=== PATIENT | male | born 1950 | race Caucasian/White ===

== ENCOUNTER → 2016-06-27 | Outpatient (CLI) | payer BC | LOC: MW.CHIM 15:13 | PROVIDERS: ATTEND Internal Medicine | DX: R07.9 Chest pain, unspecified (principal); R00.1 Bradycardia, unspecified | CPT/HCPCS: 93005 ==

== ENCOUNTER → 2016-07-11 | Outpatient (CLI) | payer BC ==
[~2016-07-11] MED LIST: Gadobenate Dimeglumine 529 MG/ML 20 ML SDV IV ONE
--- NOTE | 2016-07-12 09:46 | MR ---
EXAMINATION: MRI of the brain with and without contrast. TECHNIQUE: Multiplanar multisequence imaging of the brain without and following 15 cc of Multihance contrast. HISTORY: Multiple sclerosis. COMPARISON: 06/23/2015. FINDINGS: There are several periventricular and subcortical white matter FLAIR signal foci identified. Callosa l lesions are also noted. Overall these appear grossly unchanged from the previous MRI. No abnorma l enhancement or diffusion restriction to suggest active demyelination. No abnormal cerebellar or m idbrain signal. There is minimal mucosal thickening within the maxillary sinuses and ethmoid air cells. The orbits a nd globes appear intact. Expected flow voids are present. The cerebellar pontine angles are clear. T he craniocervical junction is normal. IMPRESSION: 1. Stable intracranial white matter FLAIR signal abnormalities consistent with multiple sclerosis. N o evidence of active demyelination.
== END ==
LOC: MW.MRI 14:40
PROVIDERS: ATTEND Psychiatry & Neurology Neurology
DX: G35 Multiple sclerosis (principal); I10 Essential (primary) hypertension; E78.5 Hyperlipidemia, unspecified; E11.9 Type 2 diabetes mellitus without complications; K21.9 Gastro-esophageal reflux disease without esophagitis
CPT/HCPCS: 36415; 70553; 80053; 80061; 83036; 85025; A9577; G0103

== ENCOUNTER 2017-10-12 14:28 | Emergency (ER) | payer BC ==
[2017-10-12] MEDS ORDERED: Bacitracin Oint 1 GM U/D Packet TOP ONE (14:45)
--- NOTE | 2017-10-12 15:01 | EDM.PDOC ---
ED HPI GENERAL MEDICAL PROBLEM - General Chief Complaint: Laceration Stated Complaint: CUT FINGER ON LF HAND Time Seen by Provider: 10/12/17 14:32 Source of Information: Reports: Patient History Limitations: Reports: No Limitations - History of Present Illness INITIAL COMMENTS - FREE TEXT/NARRATIVE: HISTORY AND PHYSICAL: History of present illness: Patient is a 67-year-old male who presents to the emergency room today with complaints of a laceration to the PIP joint on the left second digit. He was using a knife when it slipped resulting in the laceration. Appears to have no tendon involvement. Denies any numbness and tingling to the distal extremity. Review of systems: As per history of present illness and below otherwise all systems reviewed and negative. Past medical history: As per history of present illness and as reviewed below otherwise noncontributory. Surgical history: As per history of present illness and as reviewed below otherwise noncontributory. Social history: No reported history of drug or alcohol abuse. Family history: As per history of present illness and as reviewed below otherwise noncontributory. Physical exam: General: Well-developed and well-nourished 67 year old male. Alert and oriented. Nontoxic appearing and in no acute distress. HEENT: Atraumatic, normocephalic, pupils equal and reactive bilaterally, negative for conjunctival pallor or scleral icterus, mucous membranes moist, throat clear, neck supple, nontender, trachea midline. No drooling or trismus noted. No meningeal signs Lungs: Clear to auscultation, breath sounds equal bilaterally, chest nontender. Heart: S1S2, regular rate and rhythm without overt murmur Abdomen: Soft, nondistended, nontender. Negative for masses or hepatosplenomegaly. Negative for costovertebral tenderness. Pelvis: Stable nontender. Genitourinary: Deferred. Rectal: Deferred. Skin: 4 cm "C" shaped laceration to DIP joint of left second digit. Appears to have no tendon involvement. Otherwise skin is intact, warm, dry. No lesions or rashes noted. Extremities: Moves all extremities per self without difficulty or deficits. Please see skin assessment for laceration note. No tendon involvement. Capillary refill less than 3 seconds. Strong radial pulse. Neurovascular unremarkable. Neuro: Awake, alert, oriented. Cranial nerves II through XII unremarkable. Cerebellum unremarkable. Motor and sensory unremarkable throughout. Exam nonfocal. Notes: Area was cleansed with chlorhexidine. 1% lidocaine was used to anesthetize the area. Usual and customary procedures were used for sutures. 4-9 Nylon, #8 interrupted sutures were placed. Patient tolerated well. Bacitracin nonstick dressing was applied. Supportive care measures were reviewed and discussed. Signs and symptoms that would prompt him to return to the emergency room were reviewed. Patient voices understanding and is agreeable to plan of care. Denies any further questions or concerns at this time. Diagnostics: None Therapeutics: 1% lidocaine, wound care, bacitracin dressing Prescription: None Impression: Laceration, left hand Plan: 1. Rest, ice, elevate the affected extremity. Keep the skin clean and dry. Monitor for signs of infection. Sutures to be removed in 7-10 days. 2. Tylenol and/or ibuprofen as needed for pain management. 3. Follow-up with your primary caregiver in the next 1-2 days. Return to the ED as needed and as discussed. Definitive disposition and diagnosis as appropriate pending reevaluation and review of above. Left 2-Index finger Pain Score (Numeric/FACES): 2 - Related Data Allergies Allergy/AdvReac Type Severity Reaction Status Date / Time Penicillins Allergy Cannot Verified 10/12/17 14:35 Remember Sulfa (Sulfonamide Allergy Cannot Verified 10/12/17 14:35 Antibiotics) Remember Home Meds: Home Meds Acyclovir [Zovirax] 400 mg PO BID 10/12/17 [History] Dorzolamide/Timolol [Cosopt 2%-0.5% Ophth Soln] 1 drop EYEBOTH DAILY 10/12/17 [ History] Metoprolol Tartrate 25 mg PO BEDTIME 10/12/17 [History] Metoprolol Tartrate 50 mg PO DAILY 10/12/17 [History] Ramipril 10 mg PO BID 10/12/17 [History] SUNItinib Malate [Sutent] 12.5 mg PO DAILY 10/12/17 [History] amLODIPine Besylate [Amlodipine Besylate] 10 mg PO DAILY 10/12/17 [History] atorvaSTATin Calcium [Atorvastatin Calcium] 40 mg PO DAILY 10/12/17 [History] metFORMIN HCl [Metformin HCl] 500 mg PO BID 10/12/17 [History] Past Medical History Cardiovascular History: Reports: High Cholesterol, Hypertension, Stents Gastrointestinal History: Reports: Other (See Below) Other Gastrointestinal History: spots on liver Genitourinary History: Reports: Acute Renal Failure Musculoskeletal History: Reports: Fracture Other Musculoskeletal History: neck fx - Infectious Disease History Infectious Disease History: Reports: Chicken Pox, Measles - Past Surgical History GI Surgical History: Reports: Appendectomy, Cholecystectomy, Other (See Below) Other GI Surgeries/Procedures: 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 ED EXAM, SKIN/RASH Exam: See Below (See dictation) ED SKIN PROCEDURES - Laceration/Wound Repair LEft 2nd finger Lac/Wound length In cm: 4 Appearance: Subcutaneous Distal NVT: Neuro & Vascular Intact, No Tendon Injury Local Anesthesia - Lidocaine (Xylocaine): 1% Plain Local Anesthetic Volume: 5cc Skin Prep: Chlorhexidine (Hibiciens), Saline, Sterile Drape Saline Irrigation (cc's): 20 Exploration/Debridement/Repair: Wound Explored, In a Bloodless Field, No Foreign Material Found Suture Size: 4-0 # of Sutures: 8 Suture Type: Nylon Sterile Dressing Applied: Provider Tetanus Status Addressed: Yes Complications: No Course - Vital Signs Last Recorded V/S: Last Vital Signs Temp 97.9 F 10/12/17 14:32 Pulse 96 10/12/17 14:32 Resp 16 10/12/17 14:32 BP 104/71 10/12/17 14:32 Pulse Ox 95 10/12/17 14:32 - Orders/Labs/Meds Orders: Active Orders 24 hr Category Date Time Status Bacitracin [Bacitracin Oint 1 GM] Med 10/12/17 14:45 Once 1 dose TOP ONETIME ONE Lidocaine 1% [Xylocaine-MPF 1%] Med 10/12/17 14:45 Once 10 ml INJECT ONETIME ONE Departure - Departure Time of Disposition: 15:07 Disposition: Home, Self-Care 01 Clinical Impression: Laceration - Discharge Information Instructions: Laceration Care, Adult, [id number] Referrals: Anjum Dang MD [Primary Care Provider] - Additional Instructions: The following information is given to patients seen in the emergency department who are being discharged to home. This information is to outline your options for follow-up care. We provide all patients seen in our emergency department with a follow-up referral. The need for follow-up, as well as the timing and circumstances, are variable depending upon the specifics of your emergency department visit. If you don't have a primary care physician on staff, we will provide you with a referral. We always advise you to contact your personal physician following an emergency department visit to inform them of the circumstance of the visit and for follow-up with them and/or the need for any referrals to a consulting specialist. The emergency department will also refer you to a specialist when appropriate. This referral assures that you have the opportunity for follow-up care with a specialist. All of these measure are taken in an effort to provide you with optimal care, which includes your follow-up. Under all circumstances we always encourage you to contact your private physician who remains a resource for coordinating your care. When calling for follow-up care, please make the office aware that this follow-up is from your recent emergency room visit. If for any reason you are refused follow-up, please contact the [facility] Emergency Department at and asked to speak to the emergency department charge nurse. [facility] [address] [place] [id number] 1. Rest, ice, elevate the affected extremity. Keep the skin clean and dry. Monitor for signs of infection. Sutures to be removed in 7-10 days. 2. Tylenol and/or ibuprofen as needed for pain management. 3. Follow-up with your primary caregiver in the next 1-2 days. Return to the ED as needed and as discussed. - My Orders Last 24 Hours: My Active Orders 10/12/17 14:45 Bacitracin [Bacitracin Oint 1 GM] 1 dose TOP ONETIME ONE Lidocaine 1% [Xylocaine-MPF 1%] 10 ml INJECT ONETIME ONE - Assessment/Plan Last 24 Hours: My Active Orders 10/12/17 14:45 Bacitracin [Bacitracin Oint 1 GM] 1 dose TOP ONETIME ONE Lidocaine 1% [Xylocaine-MPF 1%] 10 ml INJECT ONETIME ONE
== END 2017-10-12 15:22 | disposition home or self-care (01) ==
LOC: MW.ED 14:28
DX: S61.211A Laceration without foreign body of left index finger without damage to nail, initial encounter (principal); E78.00 Pure hypercholesterolemia, unspecified; I10 Essential (primary) hypertension; Z88.0 Allergy status to penicillin; Z88.2 Allergy status to sulfonamides; Z79.899 Other long term (current) drug therapy; Z79.84 Long term (current) use of oral hypoglycemic drugs; Z87.891 Personal history of nicotine dependence; W26.0XXA Contact with knife, initial encounter
CPT/HCPCS: 99282

== ENCOUNTER 2017-10-25 15:12 | Emergency (ER) | payer BC ==
--- NOTE | 2017-10-25 15:31 | EDM.PDOC ---
ED HPI GENERAL MEDICAL PROBLEM - General Chief Complaint: Wound Recheck Stated Complaint: WOUND RECHECK Time Seen by Provider: 10/25/17 15:20 - History of Present Illness INITIAL COMMENTS - FREE TEXT/NARRATIVE: HISTORY AND PHYSICAL: History of present illness: The patient is a 67-year-old male who presents for evaluation of a left hand laceration that he sustained on October 12 and had repair of here and we presented 2 days ago for suture removal. The patient says that he felt fine and he thinks that he may have overdid it with the use of the hand by doing some rigorous pushing and pulling at home and half of the wound has opened up. There is been no drainage from it and there is no significant pain swelling or redness. He is concerned about getting an infection as well as what to do with the wound. The repair note of October 12 was reviewed by me. Review of systems: As per history of present illness and below otherwise all systems reviewed and negative. Past medical history: As per history of present illness and as reviewed below otherwise noncontributory. Surgical history: As per history of present illness and as reviewed below otherwise noncontributory. Social history: No reported history of drug or alcohol abuse. Family history: As per history of present illness and as reviewed below otherwise noncontributory. Physical exam: General: Well-developed well-nourished man who is nontoxic and vital signs are reviewed by me HEENT: Atraumatic, normocephalic, negative for conjunctival pallor or scleral icterus, mucous membranes moist, throat clear, neck supple, nontender, trachea midline. Lungs: Clear to auscultation, breath sounds equal bilaterally, chest nontender. Heart: S1S2, regular 8 and rhythm no overt murmurs Abdomen: Deferred Pelvis: Deferred Genitourinary: Deferred. Rectal: Deferred. Extremities: Atraumatic, negative for cords or calf pain. Neurovascular unremarkable. At the left hand at the second MCP joint area there is a C shaped wound which a proximally one half of which is well-healed and the second half has opened up. The total length of the wound is 4 cm and the open area is 2 cm. The base is clean and dry and there is no surrounding erythema and no drainage as well as no swelling or warmth. The patient is able to range of motion at the index finger. There is no streaking and no dorsal hand swelling defects or deformities. Neuro: Awake, alert, oriented. Cranial nerves II through XII unremarkable. Cerebellum unremarkable. Motor and sensory unremarkable throughout. Exam nonfocal. Diagnostics: Therapeutics: Steri-Strips per nursing to the wound I discussed with the patient that we could apply some Steri-Strips to reapproximate the skin edges but they could not be quite tightly reapproximated and the wound would have to heal by secondary intention. I've advised him on wound care and will give him some Keflex to prevent and prophylax for any infection as he is concerned about that. Impression: Right hand laceration partial dehiscence Definitive disposition and diagnosis as appropriate pending reevaluation and review of above. - Related Data Allergies Allergy/AdvReac Type Severity Reaction Status Date / Time Penicillins Allergy Cannot Verified 10/25/17 15:23 Remember Sulfa (Sulfonamide Allergy Cannot Verified 10/25/17 15:23 Antibiotics) Remember Home Meds: Home Meds Acyclovir [Zovirax] 400 mg PO BID 10/12/17 [History] Dorzolamide/Timolol [Cosopt 2%-0.5% Ophth Soln] 1 drop EYEBOTH DAILY 10/12/17 [ History] Metoprolol Tartrate 25 mg PO BEDTIME 10/12/17 [History] Metoprolol Tartrate 50 mg PO DAILY 10/12/17 [History] Ramipril 10 mg PO BID 10/12/17 [History] SUNItinib Malate [Sutent] 12.5 mg PO DAILY 10/12/17 [History] amLODIPine Besylate [Amlodipine Besylate] 10 mg PO DAILY 10/12/17 [History] atorvaSTATin Calcium [Atorvastatin Calcium] 40 mg PO DAILY 10/12/17 [History] metFORMIN HCl [Metformin HCl] 500 mg PO BID 10/12/17 [History] Past Medical History Cardiovascular History: Reports: High Cholesterol, Hypertension, Stents Gastrointestinal History: Reports: Other (See Below) Other Gastrointestinal History: spots on liver Genitourinary History: Reports: Acute Renal Failure Musculoskeletal History: Reports: Fracture Other Musculoskeletal History: neck fx - Infectious Disease History Infectious Disease History: Reports: Chicken Pox, Measles, Mumps - Past Surgical History GI Surgical History: Reports: Appendectomy, Cholecystectomy, Other (See Below) Other GI Surgeries/Procedures: 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 ED EXAM, GENERAL - Physical Exam Exam: See Below (See dictation) Course - Vital Signs Last Recorded V/S: Last Vital Signs Temp 36.3 C 10/25/17 15:21 Pulse 53 L 10/25/17 15:21 Resp 18 10/25/17 15:21 BP 138/71 10/25/17 15:21 Pulse Ox 94 L 10/25/17 15:21 - Orders/Labs/Meds Orders: Active Orders 24 hr Category Date Time Status Communication Order [RC] STAT Care 10/25/17 15:30 Active Departure - Departure Time of Disposition: 15:35 Disposition: Home, Self-Care 01 Condition: Good Clinical Impression: Wound dehiscence - Discharge Information Referrals: PCP,None [Primary Care Provider] - Forms: ED Department Discharge Additional Instructions: The following information is given to patients seen in the emergency department who are being discharged to home. This information is to outline your options for follow-up care. We provide all patients seen in our emergency department with a follow-up referral. The need for follow-up, as well as the timing and circumstances, are variable depending upon the specifics of your emergency department visit. If you don't have a primary care physician on staff, we will provide you with a referral. We always advise you to contact your personal physician following an emergency department visit to inform them of the circumstance of the visit and for follow-up with them and/or the need for any referrals to a consulting specialist. The emergency department will also refer you to a specialist when appropriate. This referral assures that you have the opportunity for followup care with a specialist. All of these measure are taken in an effort to provide you with optimal care, which includes your followup. Under all circumstances we always encourage you to contact your private physician who remains a resource for coordinating your care. When calling for followup care, please make the office aware that this follow-up is from your recent emergency room visit. If for any reason you are refused follow-up, please contact the [facility] emergency department at and ask to speak to the emergency department charge nurse. [facility] Specialty clinic-Plastic Surgery and Hand Surgery Professional Building [address] [place] [address] [id number] Please leave the Steri-Strips on and in place and they will follow-up naturally. Please consider area with mild soap and water pat dry and you may apply bacitracin or Neosporin as you choose. Take Keflex as prescribed. Please call and schedule a follow-up appointment with our hand specialist in the next few days as you choose and return to ER as needed and as discussed. The wound will slowly you by itself filling in the area naturally over the next 10-14 days. - My Orders Last 24 Hours: My Active Orders 10/25/17 15:30 Communication Order [RC] STAT - Assessment/Plan Last 24 Hours: My Active Orders 10/25/17 15:30 Communication Order [RC] STAT
== END 2017-10-25 15:48 | disposition home or self-care (01) ==
LOC: MW.ED 15:12
DX: T81.30XA Disruption of wound, unspecified, initial encounter (principal); I10 Essential (primary) hypertension; Z79.84 Long term (current) use of oral hypoglycemic drugs; Z79.899 Other long term (current) drug therapy; Z88.2 Allergy status to sulfonamides; Z95.5 Presence of coronary angioplasty implant and graft; Z88.0 Allergy status to penicillin
CPT/HCPCS: 99282

== ENCOUNTER 2017-11-25 13:27 | Inpatient (IN) | payer BC ==
[2017-11-25] MEDS ORDERED: Sodium Chloride 0.9% 2.5 ML Syringe FLUSH PRN (14:23)
[2017-11-25] MEDS ORDERED: Sodium Chloride 0.9% 10 ML Syringe FLUSH PRN (14:23)
[2017-11-25] MEDS ORDERED: Sodium Chloride 0.9% 1,000 ML IV ONE (14:23)
--- NOTE | 2017-11-25 14:33 | EDM.PDOC ---
ED HPI GENERAL MEDICAL PROBLEM - General Chief Complaint: Abdominal Pain Stated Complaint: LOWER ABD PAIN Time Seen by Provider: 11/25/17 14:28 Source of Information: Reports: Patient History Limitations: Reports: No Limitations - History of Present Illness INITIAL COMMENTS - FREE TEXT/NARRATIVE: HISTORY AND PHYSICAL: History of present illness: Patient is a 67-year-old male here with complaint of abdominal pain since 2am today. He reports a constant dull pain with intermittent sharp, severe pain. He states it feels similar to when he had a bowel obstruction a couple of years ago. He states pain is mostly on his right side but wraps around to the left. He states he normally has a bowel movement 10-15 minutes following every meal but yesterday wasn't having regular bowel movements. He states he had a small BM this morning, denies melena or hematochezia. He denies nausea, vomiting, diarrhea, chest pain, shortness of breath. Patient states he did have a small bowel obstruction in 2010 and reports it feels similar to this. Review of systems: As per history of present illness and below otherwise all systems reviewed and negative. Past medical history: As per history of present illness and as reviewed below otherwise noncontributory. Surgical history: As per history of present illness and as reviewed below otherwise noncontributory. Social history: No reported history of drug or alcohol abuse. Family history: As per history of present illness and as reviewed below otherwise noncontributory. Physical exam: General: Patient sitting comfortably in no acute distress and nontoxic appearing HEENT: Atraumatic, normocephalic, pupils reactive, negative for conjunctival pallor or scleral icterus, mucous membranes moist, throat clear, neck supple, nontender, trachea midline. No meningeal signs. Lungs: Clear to auscultation, breath sounds equal bilaterally, chest nontender. Heart: S1S2, regular, negative for clicks, rubs, or overt murmur. Abdomen: Bowel sounds diminished, mildy distended abdomen, pain to palpation diffusely but mostly the right side of the abdomen. Negative for masses or hepatosplenomegaly. Negative for costovertebral tenderness. Pelvis: Stable nontender. Genitourinary: Deferred. Rectal: Deferred. Extremities: Atraumatic, negative for cords or calf pain. Neurovascular unremarkable. Neuro: Awake, alert, oriented. Cranial nerves II through XII unremarkable. Cerebellum unremarkable. Motor and sensory unremarkable throughout. Exam nonfocal. Notes: Diagnostics: CBC, CMP, UA, CT abdomen/pelvis Therapeutics: NG tube Prescriptions: None Impression: Small bowel obstruction Plan: Discussed with Dr. Corrales, patient will be admitted. Discussed with Dr. Bauer as well, he will consult with patient on the floor. Definitive disposition and diagnosis as appropriate pending reevaluation and review of above. Abdomen Pain Score (Numeric/FACES): 3 - Related Data Allergies Allergy/AdvReac Type Severity Reaction Status Date / Time Penicillins Allergy Cannot Verified 11/25/17 14:11 Remember Sulfa (Sulfonamide Allergy Cannot Verified 11/25/17 14:11 Antibiotics) Remember Home Meds: Home Meds Acyclovir [Zovirax] 400 mg PO BID 10/12/17 [History] Dorzolamide/Timolol [Cosopt 2%-0.5% Ophth Soln] 1 drop EYEBOTH DAILY 10/12/17 [ History] Metoprolol Tartrate 25 mg PO BEDTIME 10/12/17 [History] Metoprolol Tartrate 50 mg PO DAILY 10/12/17 [History] Ramipril 10 mg PO BID 10/12/17 [History] SUNItinib Malate [Sutent] 12.5 mg PO DAILY 10/12/17 [History] amLODIPine Besylate [Amlodipine Besylate] 10 mg PO DAILY 10/12/17 [History] atorvaSTATin Calcium [Atorvastatin Calcium] 40 mg PO DAILY 10/12/17 [History] metFORMIN HCl [Metformin HCl] 500 mg PO BID 10/12/17 [History] Past Medical History Cardiovascular History: Reports: High Cholesterol, Hypertension, Stents Gastrointestinal History: Reports: Other (See Below) Other Gastrointestinal History: spots on liver Genitourinary History: Reports: Acute Renal Failure Musculoskeletal History: Reports: Fracture Other Musculoskeletal History: neck fx - Infectious Disease History Infectious Disease History: Reports: Chicken Pox, Measles, Mumps - Past Surgical History GI Surgical History: Reports: Appendectomy, Cholecystectomy, Other (See Below) Other GI Surgeries/Procedures: 60 percent pancreas removal, splenectomy Social & Family History - Family History Family Medical History: Noncontributory - Caffeine Use Caffeine Use: Reports: None ED ROS GENERAL - Review of Systems Review Of Systems: ROS reveals no pertinent complaints other than HPI. ED EXAM, GI/ABD - Physical Exam Exam: See Below (see dictation) Course - Vital Signs Last Recorded V/S: Last Vital Signs Temp 36.4 C 11/25/17 14:08 Pulse 62 11/25/17 14:08 Resp 16 11/25/17 14:08 BP 144/70 H 11/25/17 14:08 Pulse Ox 96 11/25/17 14:08 - Orders/Labs/Meds Orders: Active Orders 24 hr Category Date Time Status EKG Documentation Completion [RC] STAT Care 11/25/17 14:23 Active Abdomen Pelvis w Cont [CT] Stat Exams 11/25/17 15:56 Taken CULTURE URINE [RM] Stat Lab 11/25/17 17:05 Received Sodium Chloride 0.9% [Saline Flush] Med 11/25/17 14:23 Active 10 ml FLUSH ASDIRECTED PRN Sodium Chloride 0.9% [Saline Flush] Med 11/25/17 14:23 Active 2.5 ml FLUSH ASDIRECTED PRN Saline Lock Insert [OM.PC] Stat Oth 11/25/17 14:22 Ordered Medication Orders Sodium Chloride (Saline Flush) 10 ml FLUSH ASDIRECTED PRN PRN Reason: Keep Vein Open Sodium Chloride (Saline Flush) 2.5 ml FLUSH ASDIRECTED PRN PRN Reason: Keep Vein Open Labs: Laboratory Tests 11/25/17 11/25/17 11/25/17 Range/Units 14:49 14:49 17:05 WBC 9.49 (4.0-11.0) K/uL RBC 3.83 L (4.50-5.90) M/uL Hgb 13.5 (13.0-17.0) g/dL Hct 40.4 (38.0-50.0) % MCV 105.5 H (80.0-98.0) fL MCH 35.2 H (27.0-32.0) pg MCHC 33.4 (31.0-37.0) g/dL RDW Std Deviation 61.6 (28.0-62.0) fl RDW Coeff of Reva 16 H (11.0-15.0) % Plt Count 251 (150-400) K/uL MPV 10.90 (7.40-12.00) fL Neut % (Auto) 77.8 (48.0-80.0) % Lymph % (Auto) 14.1 L (16.0-40.0) % [place] % (Auto) 7.4 (0.0-15.0) % Eos % (Auto) 0.6 (0.0-7.0) % Baso % (Auto) 0.1 (0.0-1.5) % Neut # (Auto) 7.4 H (1.4-5.7) K/uL Lymph # (Auto) 1.3 (0.6-2.4) K/uL [place] # (Auto) 0.7 (0.0-0.8) K/uL Eos # (Auto) 0.1 (0.0-0.7) K/uL Baso # (Auto) 0.0 (0.0-0.1) K/uL Nucleated RBC % 0.0 /100WBC Nucleated RBCs # 0 K/uL Sodium 137 (136-148) mmol/L Potassium 4.1 (3.5-5.1) mmol/L Chloride 103 (98-107) mmol/L Carbon Dioxide 28.5 (21.0-32.0) mmol/L BUN 21 H (7.0-18.0) mg/dL Creatinine 1.2 (0.8-1.3) mg/dL Est Cr Clr Drug Dosing 58.58 mL/min Estimated GFR (MDRD) > 60.0 ml/min Glucose 107 H (74-106) mg/dL Calcium 9.8 (8.5-10.1) mg/dL Total Bilirubin 1.2 H (0.2-1.0) mg/dL AST 18 (15-37) IU/L ALT 27 (14-63) IU/L Alkaline Phosphatase 79 (46-116) U/L Troponin I < 0.050 (0.000-0.056) ng/mL Total Protein 7.0 (6.4-8.2) g/dL Albumin 3.7 (3.4-5.0) g/dL Globulin 3.3 (2.0-3.5) g/dL Albumin/Globulin Ratio 1.1 L (1.3-2.8) Lipase 83 (73-393) U/L Urine Color YELLOW Urine Appearance CLEAR Urine pH 7.5 (5.0-8.0) Ur Specific [place] 1.015 (1.001-1.035) Urine Protein NEGATIVE (NEGATIVE) mg/dL Urine Glucose (UA) NEGATIVE (NEGATIVE) mg/dL Urine Ketones NEGATIVE (NEGATIVE) mg/dL Urine Occult Blood NEGATIVE (NEGATIVE) Urine Nitrite NEGATIVE (NEGATIVE) Urine Bilirubin NEGATIVE (NEGATIVE) Urine Urobilinogen 1.0 (<2.0) EU/dL Ur Leukocyte Esterase NEGATIVE (NEGATIVE) Urine RBC 0-1 (0-2/HPF) Urine WBC 0-1 (0-5/HPF) Ur Epithelial Cells RARE (NONE-FEW) Amorphous Sediment LIGHT (NEGATIVE) Urine Bacteria FEW (NEGATIVE) Urine Mucus LIGHT (NONE-MOD) Meds: Medications Generic Name Dose Route Start Last Admin Trade Name Freq PRN Reason Stop Dose Admin Sodium Chloride 10 ml 11/25/17 14:23 Saline Flush FLUSH ASDIRECTED PRN Keep Vein Open Sodium Chloride 2.5 ml 11/25/17 14:23 Saline Flush FLUSH ASDIRECTED PRN Keep Vein Open Discontinued Medications Generic Name Dose Route Start Last Admin Trade Name Freq PRN Reason Stop Dose Admin Sodium Chloride 1,000 mls @ 999 mls/hr 11/25/17 14:23 11/25/17 14:43 Normal Saline IV 11/25/17 15:23 Not Given STAT ONE Iopamidol 100 ml 11/25/17 16:43 11/25/17 16:43 Isovue Multipack-370 (76%) IVPUSH 11/25/17 16:44 100 ml ONETIME ONE Administration Departure - Departure Time of Disposition: 17:49 Disposition: Admitted As Inpatient 67 Condition: Good Clinical Impression: Small bowel obstruction - Discharge Information Referrals: Anjum Dang MD [Primary Care Provider] - Forms: ED Department Discharge - My Orders Last 24 Hours: My Active Orders 11/25/17 14:22 Saline Lock Insert [OM.PC] Stat 11/25/17 14:23 EKG Documentation Completion [RC] STAT Sodium Chloride 0.9% [Saline Flush] 10 ml FLUSH ASDIRECTED PRN Sodium Chloride 0.9% [Saline Flush] 2.5 ml FLUSH ASDIRECTED PRN 11/25/17 15:56 Abdomen Pelvis w Cont [CT] Stat 11/25/17 17:05 CULTURE URINE [RM] Stat - Assessment/Plan Last 24 Hours: My Active Orders 11/25/17 14:22 Saline Lock Insert [OM.PC] Stat 11/25/17 14:23 EKG Documentation Completion [RC] STAT Sodium Chloride 0.9% [Saline Flush] 10 ml FLUSH ASDIRECTED PRN Sodium Chloride 0.9% [Saline Flush] 2.5 ml FLUSH ASDIRECTED PRN 11/25/17 15:56 Abdomen Pelvis w Cont [CT] Stat 11/25/17 17:05 CULTURE URINE [RM] Stat
[2017-11-25 15:23] LABS: CHLORIDE,CL 103 mmol/L (98-107); SODIUM,NA 137 mmol/L (136-148)
[2017-11-25] MEDS ORDERED: Iopamidol 755 MG/ML 200 ML Multipack Bottle IVPUSH ONE (16:43)
[2017-11-25] MEDS ORDERED: Morphine 10 MG/ML Syringe IVPUSH PRN (18:02)
[2017-11-25] MEDS ORDERED: Ketorolac 30 MG/ML SDV IV PRN (18:02)
[2017-11-25] MEDS ORDERED: Enalaprilat 1.25 MG/ML SDV IVPUSH PRN (18:09)
[2017-11-25] MEDS ORDERED: Enoxaparin 40 MG/0.4 ML Syringe SUBCUT SCH (18:15)
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
[2017-11-25] MEDS: Insulin Aspart 100 Units/ML 3 ML Pen SUBCUT SCH (22:17)
[2017-11-25] MEDS: Ondansetron 4 MG/2 ML SDV IVPUSH SCH (22:18)
[2017-11-26] MEDS: Ondansetron 4 MG/2 ML SDV IVPUSH SCH ×3 (00:45→13:19)
[2017-11-26] MEDS: Sodium Chloride 0.9% 1,000 ML IV SCH ×2 (00:46→09:25)
[2017-11-26] MEDS: Insulin Aspart 100 Units/ML 3 ML Pen SUBCUT SCH (06:38)
[2017-11-26] MEDS ORDERED: Morphine 2 MG/ML Syringe IVPUSH PRN (08:31)
[2017-11-26] MEDS ORDERED: Dorzolamide/Timolol 2%-0.5% Ophth Soln 10 ML Bottle EYEBOTH SCH (09:00)
--- NOTE | 2017-11-26 10:23 | PCM.CONSN ---
- General Info Date of Service: 11/26/17 Admission Dx/Problem (Free Text): Small bowel obstruction Subjective Update: Patient is feeling much better. No nausea or vomiting. Rates his abdominal pain less than 1. He is passing gas and has had diarrheal stools since admission. Functional Status: Reports: Pain Controlled, Ambulating, Urinating. Denies: New Symptoms - Review of Systems General: Denies: Fever, Weakness, Fatigue HEENT: Reports: No Symptoms Pulmonary: Denies: Shortness of Breath, Cough Cardiovascular: Reports: No Symptoms Gastrointestinal: Reports: Diarrhea, Flatus. Denies: Abdominal Pain, Constipation, Nausea, Vomiting Genitourinary: Reports: No Symptoms Musculoskeletal: Reports: No Symptoms Skin: Reports: No Symptoms Neurological: Reports: No Symptoms Psychiatric: Reports: No Symptoms - Patient Data Vitals - Most Recent: Last Vital Signs Temp 98.6 F 11/26/17 04:55 Pulse 61 11/26/17 04:55 Resp 16 11/26/17 04:55 BP 130/79 11/26/17 04:55 Pulse Ox 92 L 11/26/17 04:55 Weight - Most Recent: 176 lb 4 oz I&O - Last 24 Hours: Intake & Output 11/25/17 11/26/17 11/26/17 19:59 03:59 11:59 Intake Total 393 Output Total 480 Balance -87 Imaging Impressions - Last 24 Hours: Flat and upright abdomen show air has advanced into the transverse colon. There are no significantly dilated loops of small bowel. Lab Results Last 24 Hours: Laboratory Results - last 24 hr 11/25/17 11/25/17 11/25/17 Range/Units 14:49 14:49 17:05 WBC 9.49 (4.0-11.0) K/uL RBC 3.83 L (4.50-5.90) M/uL Hgb 13.5 (13.0-17.0) g/dL Hct 40.4 (38.0-50.0) % MCV 105.5 H (80.0-98.0) fL MCH 35.2 H (27.0-32.0) pg MCHC 33.4 (31.0-37.0) g/dL RDW Std Deviation 61.6 (28.0-62.0) fl RDW Coeff of Reva 16 H (11.0-15.0) % Plt Count 251 (150-400) K/uL MPV 10.90 (7.40-12.00) fL Neut % (Auto) 77.8 (48.0-80.0) % Lymph % (Auto) 14.1 L (16.0-40.0) % [place] % (Auto) 7.4 (0.0-15.0) % Eos % (Auto) 0.6 (0.0-7.0) % Baso % (Auto) 0.1 (0.0-1.5) % Neut # (Auto) 7.4 H (1.4-5.7) K/uL Lymph # (Auto) 1.3 (0.6-2.4) K/uL [place] # (Auto) 0.7 (0.0-0.8) K/uL Eos # (Auto) 0.1 (0.0-0.7) K/uL Baso # (Auto) 0.0 (0.0-0.1) K/uL Nucleated RBC % 0.0 /100WBC Nucleated RBCs # 0 K/uL Sodium 137 (136-148) mmol/L Potassium 4.1 (3.5-5.1) mmol/L Chloride 103 (98-107) mmol/L Carbon Dioxide 28.5 (21.0-32.0) mmol/L BUN 21 H (7.0-18.0) mg/dL Creatinine 1.2 (0.8-1.3) mg/dL Est Cr Clr Drug Dosing 58.58 mL/min Estimated GFR (MDRD) > 60.0 ml/min Glucose 107 H (74-106) mg/dL POC Glucose (60-110) mg/dL Calcium 9.8 (8.5-10.1) mg/dL Total Bilirubin 1.2 H (0.2-1.0) mg/dL AST 18 (15-37) IU/L ALT 27 (14-63) IU/L Alkaline Phosphatase 79 (46-116) U/L Troponin I < 0.050 (0.000-0.056) ng/mL Total Protein 7.0 (6.4-8.2) g/dL Albumin 3.7 (3.4-5.0) g/dL Globulin 3.3 (2.0-3.5) g/dL Albumin/Globulin Ratio 1.1 L (1.3-2.8) Lipase 83 (73-393) U/L Urine Color YELLOW Urine Appearance CLEAR Urine pH 7.5 (5.0-8.0) Ur Specific [place] 1.015 (1.001-1.035) Urine Protein NEGATIVE (NEGATIVE) mg/dL Urine Glucose (UA) NEGATIVE (NEGATIVE) mg/dL Urine Ketones NEGATIVE (NEGATIVE) mg/dL Urine Occult Blood NEGATIVE (NEGATIVE) Urine Nitrite NEGATIVE (NEGATIVE) Urine Bilirubin NEGATIVE (NEGATIVE) Urine Urobilinogen 1.0 (<2.0) EU/dL Ur Leukocyte Esterase NEGATIVE (NEGATIVE) Urine RBC 0-1 (0-2/HPF) Urine WBC 0-1 (0-5/HPF) Ur Epithelial Cells RARE (NONE-FEW) Amorphous Sediment LIGHT (NEGATIVE) Urine Bacteria FEW (NEGATIVE) Urine Mucus LIGHT (NONE-MOD) 11/25/17 11/26/17 11/26/17 Range/Units 21:57 05:44 05:55 WBC 6.94 (4.0-11.0) K/uL RBC 3.25 L (4.50-5.90) M/uL Hgb 11.3 L (13.0-17.0) g/dL Hct 34.0 L (38.0-50.0) % MCV 104.6 H (80.0-98.0) fL MCH 34.8 H (27.0-32.0) pg MCHC 33.2 (31.0-37.0) g/dL RDW Std Deviation 61.5 (28.0-62.0) fl RDW Coeff of Reva 16 H (11.0-15.0) % Plt Count 223 (150-400) K/uL MPV 11.10 (7.40-12.00) fL Neut % (Auto) 61.8 (48.0-80.0) % Lymph % (Auto) 30.1 (16.0-40.0) % [place] % (Auto) 7.1 (0.0-15.0) % Eos % (Auto) 0.9 (0.0-7.0) % Baso % (Auto) 0.1 (0.0-1.5) % Neut # (Auto) 4.3 (1.4-5.7) K/uL Lymph # (Auto) 2.1 (0.6-2.4) K/uL [place] # (Auto) 0.5 (0.0-0.8) K/uL Eos # (Auto) 0.1 (0.0-0.7) K/uL Baso # (Auto) 0.0 (0.0-0.1) K/uL Nucleated RBC % 0.3 /100WBC Nucleated RBCs # 0 K/uL Sodium 141 (136-148) mmol/L Potassium 4.2 (3.5-5.1) mmol/L Chloride 108 H (98-107) mmol/L Carbon Dioxide 28.3 (21.0-32.0) mmol/L BUN 26 H (7.0-18.0) mg/dL Creatinine 1.3 (0.8-1.3) mg/dL Est Cr Clr Drug Dosing 54.08 mL/min Estimated GFR (MDRD) 55.2 ml/min Glucose 113 H (74-106) mg/dL POC Glucose 120 H (60-110) mg/dL Calcium 8.5 (8.5-10.1) mg/dL Total Bilirubin 1.4 H (0.2-1.0) mg/dL AST 16 (15-37) IU/L ALT 20 (14-63) IU/L Alkaline Phosphatase 62 (46-116) U/L Troponin I (0.000-0.056) ng/mL Total Protein 5.6 L (6.4-8.2) g/dL Albumin 2.8 L (3.4-5.0) g/dL Globulin 2.8 (2.0-3.5) g/dL Albumin/Globulin Ratio 1.0 L (1.3-2.8) Lipase (73-393) U/L Urine Color Urine Appearance Urine pH (5.0-8.0) Ur Specific [place] (1.001-1.035) Urine Protein (NEGATIVE) mg/dL Urine Glucose (UA) (NEGATIVE) mg/dL Urine Ketones (NEGATIVE) mg/dL Urine Occult Blood (NEGATIVE) Urine Nitrite (NEGATIVE) Urine Bilirubin (NEGATIVE) Urine Urobilinogen (<2.0) EU/dL Ur Leukocyte Esterase (NEGATIVE) Urine RBC (0-2/HPF) Urine WBC (0-5/HPF) Ur Epithelial Cells (NONE-FEW) Amorphous Sediment (NEGATIVE) Urine Bacteria (NEGATIVE) Urine Mucus (NONE-MOD) 11/26/17 Range/Units 06:15 WBC (4.0-11.0) K/uL RBC (4.50-5.90) M/uL Hgb (13.0-17.0) g/dL Hct (38.0-50.0) % MCV (80.0-98.0) fL MCH (27.0-32.0) pg MCHC (31.0-37.0) g/dL RDW Std Deviation (28.0-62.0) fl RDW Coeff of Reva (11.0-15.0) % Plt Count (150-400) K/uL MPV (7.40-12.00) fL Neut % (Auto) (48.0-80.0) % Lymph % (Auto) (16.0-40.0) % [place] % (Auto) (0.0-15.0) % Eos % (Auto) (0.0-7.0) % Baso % (Auto) (0.0-1.5) % Neut # (Auto) (1.4-5.7) K/uL Lymph # (Auto) (0.6-2.4) K/uL [place] # (Auto) (0.0-0.8) K/uL Eos # (Auto) (0.0-0.7) K/uL Baso # (Auto) (0.0-0.1) K/uL Nucleated RBC % /100WBC Nucleated RBCs # K/uL Sodium (136-148) mmol/L Potassium (3.5-5.1) mmol/L Chloride (98-107) mmol/L Carbon Dioxide (21.0-32.0) mmol/L BUN (7.0-18.0) mg/dL Creatinine (0.8-1.3) mg/dL Est Cr Clr Drug Dosing mL/min Estimated GFR (MDRD) ml/min Glucose (74-106) mg/dL POC Glucose 100 (60-110) mg/dL Calcium (8.5-10.1) mg/dL Total Bilirubin (0.2-1.0) mg/dL AST (15-37) IU/L ALT (14-63) IU/L Alkaline Phosphatase (46-116) U/L Troponin I (0.000-0.056) ng/mL Total Protein (6.4-8.2) g/dL Albumin (3.4-5.0) g/dL Globulin (2.0-3.5) g/dL Albumin/Globulin Ratio (1.3-2.8) Lipase (73-393) U/L Urine Color Urine Appearance Urine pH (5.0-8.0) Ur Specific [place] (1.001-1.035) Urine Protein (NEGATIVE) mg/dL Urine Glucose (UA) (NEGATIVE) mg/dL Urine Ketones (NEGATIVE) mg/dL Urine Occult Blood (NEGATIVE) Urine Nitrite (NEGATIVE) Urine Bilirubin (NEGATIVE) Urine Urobilinogen (<2.0) EU/dL Ur Leukocyte Esterase (NEGATIVE) Urine RBC (0-2/HPF) Urine WBC (0-5/HPF) Ur Epithelial Cells (NONE-FEW) Amorphous Sediment (NEGATIVE) Urine Bacteria (NEGATIVE) Urine Mucus (NONE-MOD) Med Orders - Current: Current Medications Dorzolamide/Timolol (Cosopt 2%-0.5% Ophth Soln) 0 ml EYEBOTH DAILY [facility] Enalaprilat (Vasotec Iv) 1.25 mg IVPUSH Q6H PRN PRN Reason: Hypertension Enoxaparin Sodium (Lovenox) 40 mg SUBCUT Q24H [facility] Last Admin: 11/25/17 22:48 Dose: 40 mg Sodium Chloride (Normal Saline) 1,000 mls @ 125 mls/hr IV ASDIRECTED [facility] Last Admin: 11/26/17 09:25 Dose: 125 mls/hr Insulin Aspart (Novolog) 0 unit SUBCUT ACBREAKFASTANDBED [facility]; Protocol Last Admin: 11/26/17 06:38 Dose: Not Given Ketorolac Tromethamine (Toradol) 30 mg IV Q6H PRN PRN Reason: Pain (moderate 4-6) Last Admin: 11/25/17 22:49 Dose: 30 mg Morphine Sulfate (Morphine) 2 mg IVPUSH Q2H PRN PRN Reason: Pain (severe 7-10) Stop: 11/26/17 18:04 Ondansetron HCl (Zofran) 4 mg IVPUSH Q6H [facility] Last Admin: 11/26/17 06:16 Dose: 4 mg Sodium Chloride (Saline Flush) 10 ml FLUSH ASDIRECTED PRN PRN Reason: Keep Vein Open Sodium Chloride (Saline Flush) 2.5 ml FLUSH ASDIRECTED PRN PRN Reason: Keep Vein Open Discontinued Medications Sodium Chloride (Normal Saline) 1,000 mls @ 999 mls/hr IV STAT ONE Stop: 11/25/17 15:23 Last Admin: 11/25/17 14:43 Dose: Not Given Iopamidol (Isovue Multipack-370 (76%)) 100 ml IVPUSH ONETIME ONE Stop: 11/25/17 16:44 Last Admin: 11/25/17 16:43 Dose: 100 ml Morphine Sulfate (Morphine) 2 mg IVPUSH Q2H PRN PRN Reason: Pain (severe 7-10) Stop: 11/26/17 18:04 - Exam Quality Assessment: No: Supplemental Oxygen, Urine Catheter General: Alert, Oriented, Cooperative, No Acute Distress HEENT: Pupils Equal, Pupils Reactive, EOMI Neck: Supple Lungs: Clear to Auscultation, Normal Respiratory Effort Cardiovascular: Regular Rate, Regular Rhythm GI/Abdominal Exam: Normal Bowel Sounds, Soft, Non-Tender, No Organomegaly, No Distention, No Mass (Male) Exam: No Hernia Back Exam: Normal Inspection, Full Range of Motion Extremities: Normal Inspection, Normal Range of Motion, Non-Tender, No Pedal Edema, Normal Capillary Refill Skin: Warm, Dry, Intact Neurological: No New Focal Deficit Psy/Mental Status: Alert, Normal Affect, Normal Mood Consult PN Assessment/Plan Procedures: Procedures ASSAY OF AMYLASE (08/10/16) ASSAY OF FOLIC ACID SERUM (08/09/16) ASSAY OF FREE THYROXINE (06/30/15) ASSAY OF MAGNESIUM (09/01/17) ASSAY OF NATRIURETIC PEPTIDE (06/28/17) ASSAY OF PROTEIN URINE (09/14/17) ASSAY OF PSA TOTAL (09/01/17) ASSAY THYROID STIM HORMONE (06/30/15) CHEMO ANTI-NEOPL SQ/IM (11/20/14) COMPLETE CBC W/AUTO DIFF WBC (09/01/17) COMPREHEN METABOLIC PANEL (09/01/17) CREATININE CLEARANCE TEST (09/14/17) ELECTROCARDIOGRAM TRACING (06/27/16) EMERGENCY DEPT VISIT (10/25/17) GLYCOSYLATED HEMOGLOBIN TEST (09/01/17) IMMUNOASSAY TUMOR OTHER (11/02/16) LIPID PANEL (09/01/17) METABOLIC PANEL TOTAL CA (03/26/14) MRI BRAIN STEM W/O & W/DYE (07/11/16) OCCULT BLOOD FECES (07/26/16) ROUTINE VENIPUNCTURE (09/14/17) RPR S/N/AX/GEN/TRNK2.6-7.5CM (10/12/17) THER/PROPH/DIAG INJ SC/IM (04/29/15) TISSUE CULTURE BONE MARROW (04/04/16) UR ALBUMIN SEMIQUANTITATIVE (12/10/13) URINALYSIS AUTO W/SCOPE (11/02/16) US EXAM ABDO BACK WALL ZIMMERMAN (09/14/17) US EXAM ABDOM COMPLETE (08/10/16) VITAMIN B-12 (08/09/16) X-RAY EXAM CHEST 2 VIEWS (06/28/17) (1) Primary pancreatic neuroendocrine tumor SNOMED Code(s): 148268681, 387717508 Code(s): D3A.8 - OTHER BENIGN NEUROENDOCRINE TUMORS Priority: High Current Visit: Yes Comment: Multiple hepatic metastases. (2) Small bowel obstruction SNOMED Code(s): 142128495 Code(s): K56.609 - UNSP INTESTNL OBST, UNSP TO PARTIAL VERSUS COMPLETE OBST Priority: High Current Visit: Yes Problem List Initiated/Reviewed/Updated: Yes My Orders Last 24 Hours: My Active Orders 11/26/17 07:30 Abdomen 2V AP Flat Upright [CR] Routine Plan: Small bowel obstruction appears resolved. I think it safe to remove his NG tube and start him on a clear liquid diet. If he continues to improve his diet could be advanced and he could subsequently be discharged.
--- NOTE | 2017-11-26 11:23 | PCM.HP ---
<Robert Hernandez - Last Filed: 11/26/17 11:34> H&P History of Present Illness - General Date of Service: 11/26/17 Admit Problem/Dx: Small bowel obstruction - History of Present Illness Initial Comments - Free Text/Narative: Hudson Ngo is a 67 y/o male with history of neuroendocrine pancreatic cancer who presented to the ER complaining of acute abdominal pain. Imaging showed a small bowel obstruction. Patient denied any nausea or vomiting. States that abdominal pain felt similar to previous small bowel obstruction. Denies any blood in stool. Denies any sick contacts at home. Denies chest pain, dyspnea, dysuria, rashes. Overnight, the patient's abdominal pain improved significantly. Has been passing gas. No vomiting. Good NG tube output of approximately 250 mls since admission. Abdomen Pain Score (Numeric/FACES): 3 - Related Data Allergies/Adverse Reactions: Allergies Allergy/AdvReac Type Severity Reaction Status Date / Time Penicillins Allergy Cannot Verified 11/25/17 14:11 Remember Sulfa (Sulfonamide Allergy Cannot Verified 11/25/17 14:11 Antibiotics) Remember Home Medications: Home Meds Acyclovir [Zovirax] 400 mg PO BID 10/12/17 [History] Dorzolamide/Timolol [Cosopt 2%-0.5% Ophth Soln] 1 drop EYEBOTH DAILY 10/12/17 [ History] Metoprolol Tartrate 25 mg PO BEDTIME 10/12/17 [History] Metoprolol Tartrate 50 mg PO DAILY 10/12/17 [History] Ramipril 10 mg PO BID 10/12/17 [History] SUNItinib Malate [Sutent] 12.5 mg PO DAILY 10/12/17 [History] amLODIPine Besylate [Amlodipine Besylate] 10 mg PO DAILY 10/12/17 [History] atorvaSTATin Calcium [Atorvastatin Calcium] 40 mg PO BEDTIME 10/12/17 [History] metFORMIN HCl [Metformin HCl] 500 mg PO BID 10/12/17 [History] Cholecalciferol (Vitamin D3) [Vitamin D3] 1,000 units PO DAILY 11/25/17 [History ] Magnesium Oxide [Magnesium] 400 mg PO BID 11/25/17 [History] Multivitamin/Iron/Folic Acid [Multi-Day Plus Iron Tablet] 1 tab PO DAILY [History] Patient's Own Medication [Ptom] 1 drop EYELF BEDTIME 11/25/17 [History] Patient's Own Medication [Ptom] 1 drop EYELF BID 11/25/17 [History] Patient's Own Medication [Ptom] 3 tab PO DAILY 11/25/17 [History] Past Medical History HEENT History: Reports: Cataract, Glaucoma, Impaired Vision Other HEENT History: wears glasses Cardiovascular History: Reports: High Cholesterol, Hypertension, Stents Gastrointestinal History: Reports: Other (See Below) Other Gastrointestinal History: spots on liver. 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 Genitourinary History: Reports: Acute Renal Failure Musculoskeletal History: Reports: Back Pain, Chronic, Fracture Other Musculoskeletal History: neck fx Neurological History: Reports: MS Endocrine/Metabolic History: Reports: Diabetes, Type II Oncologic (Cancer) History: Reports: Other (See Below) Other Oncologic History: neuroendocrine cancer Dermatologic History: Reports: None - Infectious Disease History Infectious Disease History: Reports: Chicken Pox, Measles, Mumps - Past Surgical History HEENT Surgical History: Reports: Cataract Surgery Cardiovascular Surgical History: Reports: Carotid Endarterectomy, Coronary Artery Stent GI Surgical History: Reports: Appendectomy, Cholecystectomy, Other (See Below) Other GI Surgeries/Procedures: 60 percent pancreas removal, splenectomy Male Surgical History: Reports: None Endocrine Surgical History: Reports: None Dermatological Surgical History: Reports: None Social & Family History - Family History Family Medical History: Noncontributory - Tobacco Use Smoking Status *Q: Former Smoker Years of Tobacco use: 2 Used Tobacco, but Quit: Yes Month/Year Tobacco Last Used: 20+ years Tobacco Use Comment: Stopped smoking in 1984 Second Hand Smoke Exposure: No - Caffeine Use Caffeine Use: Reports: None Caffeine Use Comment: Drinks caffine free soda - Recreational Drug Use Recreational Drug Use: No H&P Review of Systems - Review of Systems: Review Of Systems: ROS reveals no pertinent complaints other than HPI. Exam - Exam Exam: See Below - Vital Signs Vital Signs: Last Vital Signs Temp 37.0 C 11/26/17 04:55 Pulse 61 11/26/17 04:55 Resp 16 11/26/17 04:55 BP 130/79 11/26/17 04:55 Pulse Ox 92 L 11/26/17 04:55 Weight: 79.946 kg - Exam General: Alert, Oriented HEENT: Conjunctiva Clear, Mucosa Moist & [place], Posterior Pharynx Clear Cardiovascular: Regular Rate, Regular Rhythm GI/Abdominal Exam: Normal Bowel Sounds, Soft, Other (minimally tender. No rebound.). No: Guarding, Rigid Extremities: Normal Inspection, Normal Range of Motion, No Pedal Edema Skin: Warm, Dry Neurological: Cranial Nerves Intact - Patient Data Lab Results Last 24 hrs: Laboratory Results - last 24 hr 11/25/17 11/25/17 11/25/17 Range/Units 14:49 14:49 17:05 WBC 9.49 (4.0-11.0) K/uL RBC 3.83 L (4.50-5.90) M/uL Hgb 13.5 (13.0-17.0) g/dL Hct 40.4 (38.0-50.0) % MCV 105.5 H (80.0-98.0) fL MCH 35.2 H (27.0-32.0) pg MCHC 33.4 (31.0-37.0) g/dL RDW Std Deviation 61.6 (28.0-62.0) fl RDW Coeff of Reva 16 H (11.0-15.0) % Plt Count 251 (150-400) K/uL MPV 10.90 (7.40-12.00) fL Neut % (Auto) 77.8 (48.0-80.0) % Lymph % (Auto) 14.1 L (16.0-40.0) % Nelson % (Auto) 7.4 (0.0-15.0) % Eos % (Auto) 0.6 (0.0-7.0) % Baso % (Auto) 0.1 (0.0-1.5) % Neut # (Auto) 7.4 H (1.4-5.7) K/uL Lymph # (Auto) 1.3 (0.6-2.4) K/uL Nelson # (Auto) 0.7 (0.0-0.8) K/uL Eos # (Auto) 0.1 (0.0-0.7) K/uL Baso # (Auto) 0.0 (0.0-0.1) K/uL Nucleated RBC % 0.0 /100WBC Nucleated RBCs # 0 K/uL Sodium 137 (136-148) mmol/L Potassium 4.1 (3.5-5.1) mmol/L Chloride 103 (98-107) mmol/L Carbon Dioxide 28.5 (21.0-32.0) mmol/L BUN 21 H (7.0-18.0) mg/dL Creatinine 1.2 (0.8-1.3) mg/dL Est Cr Clr Drug Dosing 58.58 mL/min Estimated GFR (MDRD) > 60.0 ml/min Glucose 107 H (74-106) mg/dL POC Glucose (60-110) mg/dL Calcium 9.8 (8.5-10.1) mg/dL Total Bilirubin 1.2 H (0.2-1.0) mg/dL AST 18 (15-37) IU/L ALT 27 (14-63) IU/L Alkaline Phosphatase 79 (46-116) U/L Troponin I < 0.050 (0.000-0.056) ng/mL Total Protein 7.0 (6.4-8.2) g/dL Albumin 3.7 (3.4-5.0) g/dL Globulin 3.3 (2.0-3.5) g/dL Albumin/Globulin Ratio 1.1 L (1.3-2.8) Lipase 83 (73-393) U/L Urine Color YELLOW Urine Appearance CLEAR Urine pH 7.5 (5.0-8.0) Ur Specific [place] 1.015 (1.001-1.035) Urine Protein NEGATIVE (NEGATIVE) mg/dL Urine Glucose (UA) NEGATIVE (NEGATIVE) mg/dL Urine Ketones NEGATIVE (NEGATIVE) mg/dL Urine Occult Blood NEGATIVE (NEGATIVE) Urine Nitrite NEGATIVE (NEGATIVE) Urine Bilirubin NEGATIVE (NEGATIVE) Urine Urobilinogen 1.0 (<2.0) EU/dL Ur Leukocyte Esterase NEGATIVE (NEGATIVE) Urine RBC 0-1 (0-2/HPF) Urine WBC 0-1 (0-5/HPF) Ur Epithelial Cells RARE (NONE-FEW) Amorphous Sediment LIGHT (NEGATIVE) Urine Bacteria FEW (NEGATIVE) Urine Mucus LIGHT (NONE-MOD) 11/25/17 11/26/17 11/26/17 Range/Units 21:57 05:44 05:55 WBC 6.94 (4.0-11.0) K/uL RBC 3.25 L (4.50-5.90) M/uL Hgb 11.3 L (13.0-17.0) g/dL Hct 34.0 L (38.0-50.0) % MCV 104.6 H (80.0-98.0) fL MCH 34.8 H (27.0-32.0) pg MCHC 33.2 (31.0-37.0) g/dL RDW Std Deviation 61.5 (28.0-62.0) fl RDW Coeff of Reva 16 H (11.0-15.0) % Plt Count 223 (150-400) K/uL MPV 11.10 (7.40-12.00) fL Neut % (Auto) 61.8 (48.0-80.0) % Lymph % (Auto) 30.1 (16.0-40.0) % Nelson % (Auto) 7.1 (0.0-15.0) % Eos % (Auto) 0.9 (0.0-7.0) % Baso % (Auto) 0.1 (0.0-1.5) % Neut # (Auto) 4.3 (1.4-5.7) K/uL Lymph # (Auto) 2.1 (0.6-2.4) K/uL Nelson # (Auto) 0.5 (0.0-0.8) K/uL Eos # (Auto) 0.1 (0.0-0.7) K/uL Baso # (Auto) 0.0 (0.0-0.1) K/uL Nucleated RBC % 0.3 /100WBC Nucleated RBCs # 0 K/uL Sodium 141 (136-148) mmol/L Potassium 4.2 (3.5-5.1) mmol/L Chloride 108 H (98-107) mmol/L Carbon Dioxide 28.3 (21.0-32.0) mmol/L BUN 26 H (7.0-18.0) mg/dL Creatinine 1.3 (0.8-1.3) mg/dL Est Cr Clr Drug Dosing 54.08 mL/min Estimated GFR (MDRD) 55.2 ml/min Glucose 113 H (74-106) mg/dL POC Glucose 120 H (60-110) mg/dL Calcium 8.5 (8.5-10.1) mg/dL Total Bilirubin 1.4 H (0.2-1.0) mg/dL AST 16 (15-37) IU/L ALT 20 (14-63) IU/L Alkaline Phosphatase 62 (46-116) U/L Troponin I (0.000-0.056) ng/mL Total Protein 5.6 L (6.4-8.2) g/dL Albumin 2.8 L (3.4-5.0) g/dL Globulin 2.8 (2.0-3.5) g/dL Albumin/Globulin Ratio 1.0 L (1.3-2.8) Lipase (73-393) U/L Urine Color Urine Appearance Urine pH (5.0-8.0) Ur Specific [place] (1.001-1.035) Urine Protein (NEGATIVE) mg/dL Urine Glucose (UA) (NEGATIVE) mg/dL Urine Ketones (NEGATIVE) mg/dL Urine Occult Blood (NEGATIVE) Urine Nitrite (NEGATIVE) Urine Bilirubin (NEGATIVE) Urine Urobilinogen (<2.0) EU/dL Ur Leukocyte Esterase (NEGATIVE) Urine RBC (0-2/HPF) Urine WBC (0-5/HPF) Ur Epithelial Cells (NONE-FEW) Amorphous Sediment (NEGATIVE) Urine Bacteria (NEGATIVE) Urine Mucus (NONE-MOD) 11/26/17 Range/Units 06:15 WBC (4.0-11.0) K/uL RBC (4.50-5.90) M/uL Hgb (13.0-17.0) g/dL Hct (38.0-50.0) % MCV (80.0-98.0) fL MCH (27.0-32.0) pg MCHC (31.0-37.0) g/dL RDW Std Deviation (28.0-62.0) fl RDW Coeff of Reva (11.0-15.0) % Plt Count (150-400) K/uL MPV (7.40-12.00) fL Neut % (Auto) (48.0-80.0) % Lymph % (Auto) (16.0-40.0) % Nelson % (Auto) (0.0-15.0) % Eos % (Auto) (0.0-7.0) % Baso % (Auto) (0.0-1.5) % Neut # (Auto) (1.4-5.7) K/uL Lymph # (Auto) (0.6-2.4) K/uL [place] # (Auto) (0.0-0.8) K/uL Eos # (Auto) (0.0-0.7) K/uL Baso # (Auto) (0.0-0.1) K/uL Nucleated RBC % /100WBC Nucleated RBCs # K/uL Sodium (136-148) mmol/L Potassium (3.5-5.1) mmol/L Chloride (98-107) mmol/L Carbon Dioxide (21.0-32.0) mmol/L BUN (7.0-18.0) mg/dL Creatinine (0.8-1.3) mg/dL Est Cr Clr Drug Dosing mL/min Estimated GFR (MDRD) ml/min Glucose (74-106) mg/dL POC Glucose 100 (60-110) mg/dL Calcium (8.5-10.1) mg/dL Total Bilirubin (0.2-1.0) mg/dL AST (15-37) IU/L ALT (14-63) IU/L Alkaline Phosphatase (46-116) U/L Troponin I (0.000-0.056) ng/mL Total Protein (6.4-8.2) g/dL Albumin (3.4-5.0) g/dL Globulin (2.0-3.5) g/dL Albumin/Globulin Ratio (1.3-2.8) Lipase (73-393) U/L Urine Color Urine Appearance Urine pH (5.0-8.0) Ur Specific [place] (1.001-1.035) Urine Protein (NEGATIVE) mg/dL Urine Glucose (UA) (NEGATIVE) mg/dL Urine Ketones (NEGATIVE) mg/dL Urine Occult Blood (NEGATIVE) Urine Nitrite (NEGATIVE) Urine Bilirubin (NEGATIVE) Urine Urobilinogen (<2.0) EU/dL Ur Leukocyte Esterase (NEGATIVE) Urine RBC (0-2/HPF) Urine WBC (0-5/HPF) Ur Epithelial Cells (NONE-FEW) Amorphous Sediment (NEGATIVE) Urine Bacteria (NEGATIVE) Urine Mucus (NONE-MOD) Result Diagrams: 11/26/17 05:55 11/26/17 05:44 Problem List Initiated/Reviewed/Updated: Yes Orders Last 24hrs: Active Orders 24 hr Category Date Time Status Patient Status [ADT] Routine ADT 11/25/17 18:02 Active Accu Check [Blood Glucose Check, Bedside] [RC] Care 11/25/17 18:07 Active QIDACANDBED EKG Documentation Completion [RC] STAT Care 11/25/17 14:23 Active Notify Provider Consults [RC] ASDIRECTED Care 11/25/17 18:06 Active Oxygen Therapy [RC] PRN Care 11/25/17 18:02 Active Up With Assistance [RC] ASDIRECTED Care 11/25/17 18:02 Active VTE/DVT Education [RC] PER UNIT ROUTINE Care 11/25/17 18:02 Active Consult to Physician [CONS] Routine Cons 11/25/17 18:02 Active Clear Liquid Diet [DIET] Diet 11/26/17 Lunch Active Abdomen 2V AP Flat Upright [CR] Routine Exams 11/26/17 07:30 Taken Abdomen Pelvis w Cont [CT] Stat Exams 11/25/17 15:56 Taken CXR [Chest 1V Frontal] [CR] Stat Exams 11/25/17 19:01 Taken CULTURE URINE [RM] Stat Lab 11/25/17 17:05 Received Dorzolamide/Timolol [Cosopt 2%-0.5% Ophth Soln] Med 11/26/17 09:00 Active 0 ml EYEBOTH DAILY Enalaprilat [Vasotec IV] Med 11/25/17 18:09 Active 1.25 mg IVPUSH Q6H PRN Enoxaparin [Lovenox] Med 11/25/17 18:15 Active 40 mg SUBCUT Q24H Insulin Aspart [NovoLOG] Med 11/25/17 21:00 Active See Dose Instructions SUBCUT ACBREAKFASTANDBED Ketorolac [Toradol] Med 11/25/17 18:02 Active 30 mg IV Q6H PRN Morphine Med 11/26/17 08:31 Active 2 mg IVPUSH Q2H PRN Ondansetron [Zofran] Med 11/25/17 18:15 Active 4 mg IVPUSH Q6H Sodium Chloride 0.9% [Normal Saline] 1,000 ml Med 11/25/17 18:15 Active IV ASDIRECTED Sodium Chloride 0.9% [Saline Flush] Med 11/25/17 14:23 Active 10 ml FLUSH ASDIRECTED PRN Sodium Chloride 0.9% [Saline Flush] Med 11/25/17 14:23 Active 2.5 ml FLUSH ASDIRECTED PRN Nasogastric Orogastric Tube Insertion [OM.PC] Urgent Oth 11/25/17 18:03 Ordered Nasogastric Orogastric Tube Removal [OM.PC] Routine Oth 11/26/17 10:29 Ordered Saline Lock Insert [OM.PC] Stat Ot 11/25/17 14:22 Ordered Resuscitation Status Routine Resus Stat 11/25/17 18:02 Ordered Medication Orders Dorzolamide/Timolol (Cosopt 2%-0.5% Ophth Soln) 0 ml EYEBOTH DAILY [facility] Enalaprilat (Vasotec Iv) 1.25 mg IVPUSH Q6H PRN PRN Reason: Hypertension Enoxaparin Sodium (Lovenox) 40 mg SUBCUT Q24H [facility] Last Admin: 11/25/17 22:48 Dose: 40 mg Sodium Chloride (Normal Saline) 1,000 mls @ 125 mls/hr IV ASDIRECTED [facility] Last Admin: 11/26/17 09:25 Dose: 125 mls/hr Infusion: 11/26/17 08:46 Dose: 125 mls/hr Admin: 11/26/17 00:46 Dose: 125 mls/hr Insulin Aspart (Novolog) 0 unit SUBCUT ACBREAKFASTANDBED [facility]; Protocol Last Admin: 11/26/17 06:38 Dose: Not Given Admin: 11/25/17 22:17 Dose: Not Given Ketorolac Tromethamine (Toradol) 30 mg IV Q6H PRN PRN Reason: Pain (moderate 4-6) Last Admin: 11/25/17 22:49 Dose: 30 mg Morphine Sulfate (Morphine) 2 mg IVPUSH Q2H PRN PRN Reason: Pain (severe 7-10) Stop: 11/26/17 18:04 Ondansetron HCl (Zofran) 4 mg IVPUSH Q6H [facility] Last Admin: 11/26/17 06:16 Dose: 4 mg Admin: 11/26/17 00:45 Dose: 4 mg Admin: 11/25/17 22:18 Dose: Sodium Chloride (Saline Flush) 10 ml FLUSH ASDIRECTED PRN PRN Reason: Keep Vein Open Sodium Chloride (Saline Flush) 2.5 ml FLUSH ASDIRECTED PRN PRN Reason: Keep Vein Open Assessment/Plan Comment:: 1. Small-bowel obstruction. Pain improved significantly. Appreciate Gen Surgery recommendations. DC NG tube and ordered clear liquid diet. Advance as tolerated. 2. Neuroendocrine pancreatic cancer Dispo: possibly today or tomorrow,pending if tolerating diet <Tiburcio Corrales - Last Filed: 11/26/17 16:14> H&P History of Present Illness - General Admit Problem/Dx: Admission Diagnosis/Problem Admission Diagnosis/Problem Small bowel obstruction I seen and examined the patient independently of medical and scientific illustrator. The patient is a 67-year-old gentleman with a complicated abdominal surgical history who had been admitted secondary to small bowel obstruction. Surgeon on-call was consulted. Conservative treatment with NG tube, nothing by mouth and ambulation was recommended. I have reviewed and agree with the medical residents assessment and plan of action. Please see orders. Exam - Vital Signs Vital Signs: Last Vital Signs Temp 36.6 C 11/26/17 12:00 Pulse 52 L 11/26/17 12:00 Resp 16 11/26/17 12:00 BP 139/70 11/26/17 12:00 Pulse Ox 91 L 11/26/17 12:00 - Patient Data Lab Results Last 24 hrs: Laboratory Results - last 24 hr 11/25/17 11/25/17 11/26/17 Range/Units 17:05 21:57 05:44 WBC (4.0-11.0) K/uL RBC (4.50-5.90) M/uL Hgb (13.0-17.0) g/dL Hct (38.0-50.0) % MCV (80.0-98.0) fL MCH (27.0-32.0) pg MCHC (31.0-37.0) g/dL RDW Std Deviation (28.0-62.0) fl RDW Coeff of Reva (11.0-15.0) % Plt Count (150-400) K/uL MPV (7.40-12.00) fL Neut % (Auto) (48.0-80.0) % Lymph % (Auto) (16.0-40.0) % Nelson % (Auto) (0.0-15.0) % Eos % (Auto) (0.0-7.0) % Baso % (Auto) (0.0-1.5) % Neut # (Auto) (1.4-5.7) K/uL Lymph # (Auto) (0.6-2.4) K/uL Nelson # (Auto) (0.0-0.8) K/uL Eos # (Auto) (0.0-0.7) K/uL Baso # (Auto) (0.0-0.1) K/uL Nucleated RBC % /100WBC Nucleated RBCs # K/uL Sodium 141 (136-148) mmol/L Potassium 4.2 (3.5-5.1) mmol/L Chloride 108 H (98-107) mmol/L Carbon Dioxide 28.3 (21.0-32.0) mmol/L BUN 26 H (7.0-18.0) mg/dL Creatinine 1.3 (0.8-1.3) mg/dL Est Cr Clr Drug Dosing 54.08 mL/min Estimated GFR (MDRD) 55.2 ml/min Glucose 113 H (74-106) mg/dL POC Glucose 120 H (60-110) mg/dL Calcium 8.5 (8.5-10.1) mg/dL Total Bilirubin 1.4 H (0.2-1.0) mg/dL AST 16 (15-37) IU/L ALT 20 (14-63) IU/L Alkaline Phosphatase 62 (46-116) U/L Total Protein 5.6 L (6.4-8.2) g/dL Albumin 2.8 L (3.4-5.0) g/dL Globulin 2.8 (2.0-3.5) g/dL Albumin/Globulin Ratio 1.0 L (1.3-2.8) Urine Color YELLOW Urine Appearance CLEAR Urine pH 7.5 (5.0-8.0) Ur Specific [place] 1.015 (1.001-1.035) Urine Protein NEGATIVE (NEGATIVE) mg/dL Urine Glucose (UA) NEGATIVE (NEGATIVE) mg/dL Urine Ketones NEGATIVE (NEGATIVE) mg/dL Urine Occult Blood NEGATIVE (NEGATIVE) Urine Nitrite NEGATIVE (NEGATIVE) Urine Bilirubin NEGATIVE (NEGATIVE) Urine Urobilinogen 1.0 (<2.0) EU/dL Ur Leukocyte Esterase NEGATIVE (NEGATIVE) Urine RBC 0-1 (0-2/HPF) Urine WBC 0-1 (0-5/HPF) Ur Epithelial Cells RARE (NONE-FEW) Amorphous Sediment LIGHT (NEGATIVE) Urine Bacteria FEW (NEGATIVE) Urine Mucus LIGHT (NONE-MOD) 11/26/17 11/26/17 11/26/17 Range/Units 05:55 06:15 12:49 WBC 6.94 (4.0-11.0) K/uL RBC 3.25 L (4.50-5.90) M/uL Hgb 11.3 L (13.0-17.0) g/dL Hct 34.0 L (38.0-50.0) % MCV 104.6 H (80.0-98.0) fL MCH 34.8 H (27.0-32.0) pg MCHC 33.2 (31.0-37.0) g/dL RDW Std Deviation 61.5 (28.0-62.0) fl RDW Coeff of Reva 16 H (11.0-15.0) % Plt Count 223 (150-400) K/uL MPV 11.10 (7.40-12.00) fL Neut % (Auto) 61.8 (48.0-80.0) % Lymph % (Auto) 30.1 (16.0-40.0) % Nelson % (Auto) 7.1 (0.0-15.0) % Eos % (Auto) 0.9 (0.0-7.0) % Baso % (Auto) 0.1 (0.0-1.5) % Neut # (Auto) 4.3 (1.4-5.7) K/uL Lymph # (Auto) 2.1 (0.6-2.4) K/uL [place] # (Auto) 0.5 (0.0-0.8) K/uL Eos # (Auto) 0.1 (0.0-0.7) K/uL Baso # (Auto) 0.0 (0.0-0.1) K/uL Nucleated RBC % 0.3 /100WBC Nucleated RBCs # 0 K/uL Sodium (136-148) mmol/L Potassium (3.5-5.1) mmol/L Chloride (98-107) mmol/L Carbon Dioxide (21.0-32.0) mmol/L BUN (7.0-18.0) mg/dL Creatinine (0.8-1.3) mg/dL Est Cr Clr Drug Dosing mL/min Estimated GFR (MDRD) ml/min Glucose (74-106) mg/dL POC Glucose 100 98 (60-110) mg/dL Calcium (8.5-10.1) mg/dL Total Bilirubin (0.2-1.0) mg/dL AST (15-37) IU/L ALT (14-63) IU/L Alkaline Phosphatase (46-116) U/L Total Protein (6.4-8.2) g/dL Albumin (3.4-5.0) g/dL Globulin (2.0-3.5) g/dL Albumin/Globulin Ratio (1.3-2.8) Urine Color Urine Appearance Urine pH (5.0-8.0) Ur Specific [place] (1.001-1.035) Urine Protein (NEGATIVE) mg/dL Urine Glucose (UA) (NEGATIVE) mg/dL Urine Ketones (NEGATIVE) mg/dL Urine Occult Blood (NEGATIVE) Urine Nitrite (NEGATIVE) Urine Bilirubin (NEGATIVE) Urine Urobilinogen (<2.0) EU/dL Ur Leukocyte Esterase (NEGATIVE) Urine RBC (0-2/HPF) Urine WBC (0-5/HPF) Ur Epithelial Cells (NONE-FEW) Amorphous Sediment (NEGATIVE) Urine Bacteria (NEGATIVE) Urine Mucus (NONE-MOD) Result Diagrams: 11/26/17 05:55 11/26/17 05:44 Orders Last 24hrs: Active Orders 24 hr Category Date Time Status Patient Status [ADT] Routine ADT 11/25/17 18:02 Active Accu Check [Blood Glucose Check, Bedside] [RC] Care 11/25/17 18:07 Active QIDACANDBED Notify Provider Consults [RC] ASDIRECTED Care 11/25/17 18:06 Active Oxygen Therapy [RC] PRN Care 11/25/17 18:02 Active Ready for Discharge [RC] PER UNIT ROUTINE Care 11/26/17 15:29 Active Up With Assistance [RC] ASDIRECTED Care 11/25/17 18:02 Active VTE/DVT Education [RC] PER UNIT ROUTINE Care 11/25/17 18:02 Active Consult to Physician [CONS] Routine Cons 11/25/17 18:02 Active Clear Liquid Diet [DIET] Diet 11/26/17 Lunch Active Abdomen 2V AP Flat Upright [CR] Routine Exams 11/26/17 07:30 Taken Abdomen Pelvis w Cont [CT] Stat Exams 11/25/17 15:56 Taken CXR [Chest 1V Frontal] [CR] Stat Exams 11/25/17 19:01 Taken COMPREHENSIVE METABOLIC PN,CMP [CHEM] AM Lab 11/27/17 05:11 Ordered CULTURE URINE [RM] Stat Lab 11/25/17 17:05 Received Dorzolamide/Timolol [Cosopt 2%-0.5% Ophth Soln] Med 11/26/17 09:00 Active 0 ml EYEBOTH DAILY Enalaprilat [Vasotec IV] Med 11/25/17 18:09 Active 1.25 mg IVPUSH Q6H PRN Enoxaparin [Lovenox] Med 11/25/17 18:15 Active 40 mg SUBCUT Q24H Insulin Aspart [NovoLOG] Med 11/25/17 21:00 Active See Dose Instructions SUBCUT ACBREAKFASTANDBED Ketorolac [Toradol] Med 11/25/17 18:02 Active 30 mg IV Q6H PRN Morphine Med 11/26/17 08:31 Active 2 mg IVPUSH Q2H PRN Ondansetron [Zofran] Med 11/25/17 18:15 Active 4 mg IVPUSH Q6H Sodium Chloride 0.9% [Normal Saline] 1,000 ml Med 11/25/17 18:15 Active IV ASDIRECTED Nasogastric Orogastric Tube Insertion [OM.PC] Urgent Oth 11/25/17 18:03 Ordered Nasogastric Orogastric Tube Removal [OM.PC] Routine Oth 11/26/17 10:29 Ordered Resuscitation Status Routine Resus Stat 11/25/17 18:02 Ordered Medication Orders Dorzolamide/Timolol (Cosopt 2%-0.5% Ophth Soln) 0 ml EYEBOTH DAILY [facility] Last Admin: 11/26/17 13:10 Dose: Enalaprilat (Vasotec Iv) 1.25 mg IVPUSH Q6H PRN PRN Reason: Hypertension Enoxaparin Sodium (Lovenox) 40 mg SUBCUT Q24H [facility] Last Admin: 11/25/17 22:48 Dose: 40 mg Sodium Chloride (Normal Saline) 1,000 mls @ 125 mls/hr IV ASDIRECTED [facility] Last Admin: 11/26/17 09:25 Dose: 125 mls/hr Infusion: 11/26/17 08:46 Dose: 125 mls/hr Admin: 11/26/17 00:46 Dose: 125 mls/hr Insulin Aspart (Novolog) 0 unit SUBCUT ACBREAKFASTANDBED [facility]; Protocol Last Admin: 11/26/17 06:38 Dose: Not Given Admin: 11/25/17 22:17 Dose: Not Given Ketorolac Tromethamine (Toradol) 30 mg IV Q6H PRN PRN Reason: Pain (moderate 4-6) Last Admin: 11/25/17 22:49 Dose: 30 mg Morphine Sulfate (Morphine) 2 mg IVPUSH Q2H PRN PRN Reason: Pain (severe 7-10) Stop: 11/26/17 18:04 Ondansetron HCl (Zofran) 4 mg IVPUSH Q6H [facility] Last Admin: 11/26/17 13:19 Dose: 4 mg Admin: 11/26/17 06:16 Dose: 4 mg Admin: 11/26/17 00:45 Dose: 4 mg Admin: 11/25/17 22:18 Dose: Sodium Chloride (Saline Flush) 10 ml FLUSH ASDIRECTED PRN PRN Reason: Keep Vein Open Sodium Chloride (Saline Flush) 2.5 ml FLUSH ASDIRECTED PRN PRN Reason: Keep Vein Open
--- NOTE | 2017-11-26 16:15 | PCM.DCSUM1 ---
Discharge Summary - Hospital Course Free Text/Narrative:: The patient had been admitted secondary to small bowel obstruction. Diagnosis: Stroke: No - Discharge Data Discharge Date: 11/26/17 Discharge Disposition: Home, Self-Care 01 Condition: Good - Patient Summary/Data Consults: Consultations 11/25/17 18:02 Consult to Physician [CONS] Routine Hospital Course: The patient is a 67-year-old gentleman who presented to the emergency department on November 25, 2017 with a complaint of severe abdominal pain. Patient has a history of multiple bowel obstructions and multiple abdominal surgeries. The patient does have a history of neuroendocrine tumors and partial pancreatectomy. The patient reported that prior to presentation to the emergency department he had not passed gas or had a bowel movement. On-call surgeon was consulted and felt that it was best for the patient if a conservative approach was taken. The patient had an NG tube placed to help decompress his intestine and this had improved his abdominal pain. The patient was also kept nothing by mouth and supported with intravenous fluids and also had pain control. The patient cleared his bowel obstruction relatively quickly and was noted to have a bowel movement, loose stools and passing flatus. On- call surgeon had recommended that the patient have NG tube removed and diet advanced. The patient overall had been doing very well with the NG tube gone and he had his diet advanced accordingly. The patient had been tolerating the diet well. The patient also had resolution of his pain and he had been ambulating without difficulty. It was recommended that the patient continue on all of his home medications as well as any supplements that he is taking. He has been recommended to have diet as tolerated. He is also to have activity as tolerated. The patient has been discharged from acute hospitalization with the recommendations listed above. The patient has been recommended to follow-up with general surgeon and his primary care physician. - Patient Instructions Diet: Regular Diet as Tolerated Activity: As Tolerated Notify Provider of: Fever, Increased Pain, Swelling and Redness, Nausea and/or Vomiting - Discharge Plan *PRESCRIPTION DRUG MONITORING PROGRAM REVIEWED*: Not Applicable *COPY OF PRESCRIPTION DRUG MONITORING REPORT IN PATIENT KANDI: Not Applicable Home Medications: Home Meds Acyclovir [Zovirax] 400 mg PO BID 10/12/17 [History] Dorzolamide/Timolol [Cosopt 2%-0.5% Ophth Soln] 1 drop EYEBOTH DAILY 10/12/17 [ History] Metoprolol Tartrate 25 mg PO BEDTIME 10/12/17 [History] Metoprolol Tartrate 50 mg PO DAILY 10/12/17 [History] Ramipril 10 mg PO BID 10/12/17 [History] SUNItinib Malate [Sutent] 12.5 mg PO DAILY 10/12/17 [History] amLODIPine Besylate [Amlodipine Besylate] 10 mg PO DAILY 10/12/17 [History] atorvaSTATin Calcium [Atorvastatin Calcium] 40 mg PO BEDTIME 10/12/17 [History] metFORMIN HCl [Metformin HCl] 500 mg PO BID 10/12/17 [History] Cholecalciferol (Vitamin D3) [Vitamin D3] 1,000 units PO DAILY 11/25/17 [History ] Magnesium Oxide [Magnesium] 400 mg PO BID 11/25/17 [History] Multivitamin/Iron/Folic Acid [Multi-Day Plus Iron Tablet] 1 tab PO DAILY [History] Patient's Own Medication [Ptom] 1 drop EYELF BEDTIME 11/25/17 [History] Patient's Own Medication [Ptom] 1 drop EYELF BID 11/25/17 [History] Patient's Own Medication [Ptom] 3 tab PO DAILY 11/25/17 [History] Patient Handouts: Small Bowel Obstruction, [id number] Referrals: Frank Bauer MD [Physician] - Anjum Dang MD [Primary Care Provider] - - General Info Admission Dx/Problem (Free Text: Admission Diagnosis/Problem Admission Diagnosis/Problem Small bowel obstruction Functional Status: Reports: Pain Controlled, Tolerating Diet, Ambulating - Review of Systems General: Reports: No Symptoms HEENT: Reports: No Symptoms Pulmonary: Reports: No Symptoms Cardiovascular: Reports: No Symptoms Gastrointestinal: Reports: No Symptoms Genitourinary: Reports: No Symptoms Musculoskeletal: Reports: No Symptoms Skin: Reports: No Symptoms Neurological: Reports: No Symptoms Psychiatric: Reports: No Symptoms - Patient Data Vitals - Most Recent: Last Vital Signs Temp 36.6 C 11/26/17 12:00 Pulse 52 L 11/26/17 12:00 Resp 16 11/26/17 12:00 BP 139/70 11/26/17 12:00 Pulse Ox 91 L 11/26/17 12:00 Weight - Most Recent: 79.946 kg I&O - Last 24 hours: Intake & Output 11/26/17 11/26/17 11/26/17 06:59 14:59 22:59 Intake Total 393 2560 Output Total 480 300 Balance -87 2260 Lab Results - Last 24 hrs: Laboratory Results - last 24 hr 11/25/17 11/25/17 11/26/17 Range/Units 17:05 21:57 05:44 WBC (4.0-11.0) K/uL RBC (4.50-5.90) M/uL Hgb (13.0-17.0) g/dL Hct (38.0-50.0) % MCV (80.0-98.0) fL MCH (27.0-32.0) pg MCHC (31.0-37.0) g/dL RDW Std Deviation (28.0-62.0) fl RDW Coeff of Reva (11.0-15.0) % Plt Count (150-400) K/uL MPV (7.40-12.00) fL Neut % (Auto) (48.0-80.0) % Lymph % (Auto) (16.0-40.0) % Cannon % (Auto) (0.0-15.0) % Eos % (Auto) (0.0-7.0) % Baso % (Auto) (0.0-1.5) % Neut # (Auto) (1.4-5.7) K/uL Lymph # (Auto) (0.6-2.4) K/uL Cannon # (Auto) (0.0-0.8) K/uL Eos # (Auto) (0.0-0.7) K/uL Baso # (Auto) (0.0-0.1) K/uL Nucleated RBC % /100WBC Nucleated RBCs # K/uL Sodium 141 (136-148) mmol/L Potassium 4.2 (3.5-5.1) mmol/L Chloride 108 H (98-107) mmol/L Carbon Dioxide 28.3 (21.0-32.0) mmol/L BUN 26 H (7.0-18.0) mg/dL Creatinine 1.3 (0.8-1.3) mg/dL Est Cr Clr Drug Dosing 54.08 mL/min Estimated GFR (MDRD) 55.2 ml/min Glucose 113 H (74-106) mg/dL POC Glucose 120 H (60-110) mg/dL Calcium 8.5 (8.5-10.1) mg/dL Total Bilirubin 1.4 H (0.2-1.0) mg/dL AST 16 (15-37) IU/L ALT 20 (14-63) IU/L Alkaline Phosphatase 62 (46-116) U/L Total Protein 5.6 L (6.4-8.2) g/dL Albumin 2.8 L (3.4-5.0) g/dL Globulin 2.8 (2.0-3.5) g/dL Albumin/Globulin Ratio 1.0 L (1.3-2.8) Urine Color YELLOW Urine Appearance CLEAR Urine pH 7.5 (5.0-8.0) Ur Specific [place] 1.015 (1.001-1.035) Urine Protein NEGATIVE (NEGATIVE) mg/dL Urine Glucose (UA) NEGATIVE (NEGATIVE) mg/dL Urine Ketones NEGATIVE (NEGATIVE) mg/dL Urine Occult Blood NEGATIVE (NEGATIVE) Urine Nitrite NEGATIVE (NEGATIVE) Urine Bilirubin NEGATIVE (NEGATIVE) Urine Urobilinogen 1.0 (<2.0) EU/dL Ur Leukocyte Esterase NEGATIVE (NEGATIVE) Urine RBC 0-1 (0-2/HPF) Urine WBC 0-1 (0-5/HPF) Ur Epithelial Cells RARE (NONE-FEW) Amorphous Sediment LIGHT (NEGATIVE) Urine Bacteria FEW (NEGATIVE) Urine Mucus LIGHT (NONE-MOD) 11/26/17 11/26/17 11/26/17 Range/Units 05:55 06:15 12:49 WBC 6.94 (4.0-11.0) K/uL RBC 3.25 L (4.50-5.90) M/uL Hgb 11.3 L (13.0-17.0) g/dL Hct 34.0 L (38.0-50.0) % MCV 104.6 H (80.0-98.0) fL MCH 34.8 H (27.0-32.0) pg MCHC 33.2 (31.0-37.0) g/dL RDW Std Deviation 61.5 (28.0-62.0) fl RDW Coeff of Reva 16 H (11.0-15.0) % Plt Count 223 (150-400) K/uL MPV 11.10 (7.40-12.00) fL Neut % (Auto) 61.8 (48.0-80.0) % Lymph % (Auto) 30.1 (16.0-40.0) % Cannon % (Auto) 7.1 (0.0-15.0) % Eos % (Auto) 0.9 (0.0-7.0) % Baso % (Auto) 0.1 (0.0-1.5) % Neut # (Auto) 4.3 (1.4-5.7) K/uL Lymph # (Auto) 2.1 (0.6-2.4) K/uL Cannon # (Auto) 0.5 (0.0-0.8) K/uL Eos # (Auto) 0.1 (0.0-0.7) K/uL Baso # (Auto) 0.0 (0.0-0.1) K/uL Nucleated RBC % 0.3 /100WBC Nucleated RBCs # 0 K/uL Sodium (136-148) mmol/L Potassium (3.5-5.1) mmol/L Chloride (98-107) mmol/L Carbon Dioxide (21.0-32.0) mmol/L BUN (7.0-18.0) mg/dL Creatinine (0.8-1.3) mg/dL Est Cr Clr Drug Dosing mL/min Estimated GFR (MDRD) ml/min Glucose (74-106) mg/dL POC Glucose 100 98 (60-110) mg/dL Calcium (8.5-10.1) mg/dL Total Bilirubin (0.2-1.0) mg/dL AST (15-37) IU/L ALT (14-63) IU/L Alkaline Phosphatase (46-116) U/L Total Protein (6.4-8.2) g/dL Albumin (3.4-5.0) g/dL Globulin (2.0-3.5) g/dL Albumin/Globulin Ratio (1.3-2.8) Urine Color Urine Appearance Urine pH (5.0-8.0) Ur Specific [place] (1.001-1.035) Urine Protein (NEGATIVE) mg/dL Urine Glucose (UA) (NEGATIVE) mg/dL Urine Ketones (NEGATIVE) mg/dL Urine Occult Blood (NEGATIVE) Urine Nitrite (NEGATIVE) Urine Bilirubin (NEGATIVE) Urine Urobilinogen (<2.0) EU/dL Ur Leukocyte Esterase (NEGATIVE) Urine RBC (0-2/HPF) Urine WBC (0-5/HPF) Ur Epithelial Cells (NONE-FEW) Amorphous Sediment (NEGATIVE) Urine Bacteria (NEGATIVE) Urine Mucus (NONE-MOD) Med Orders - Current: Current Medications Dorzolamide/Timolol (Cosopt 2%-0.5% Ophth Soln) 0 ml EYEBOTH DAILY [facility] Last Admin: 11/26/17 13:10 Dose: Not Given Enalaprilat (Vasotec Iv) 1.25 mg IVPUSH Q6H PRN PRN Reason: Hypertension Enoxaparin Sodium (Lovenox) 40 mg SUBCUT Q24H [facility] Last Admin: 11/25/17 22:48 Dose: 40 mg Sodium Chloride (Normal Saline) 1,000 mls @ 125 mls/hr IV ASDIRECTED [facility] Last Admin: 11/26/17 09:25 Dose: 125 mls/hr Insulin Aspart (Novolog) 0 unit SUBCUT ACBREAKFASTANDBED [facility]; Protocol Last Admin: 11/26/17 06:38 Dose: Not Given Ketorolac Tromethamine (Toradol) 30 mg IV Q6H PRN PRN Reason: Pain (moderate 4-6) Last Admin: 11/25/17 22:49 Dose: 30 mg Morphine Sulfate (Morphine) 2 mg IVPUSH Q2H PRN PRN Reason: Pain (severe 7-10) Stop: 11/26/17 18:04 Ondansetron HCl (Zofran) 4 mg IVPUSH Q6H [facility] Last Admin: 11/26/17 13:19 Dose: 4 mg Sodium Chloride (Saline Flush) 10 ml FLUSH ASDIRECTED PRN PRN Reason: Keep Vein Open Sodium Chloride (Saline Flush) 2.5 ml FLUSH ASDIRECTED PRN PRN Reason: Keep Vein Open Discontinued Medications Sodium Chloride (Normal Saline) 1,000 mls @ 999 mls/hr IV STAT ONE Stop: 11/25/17 15:23 Last Admin: 11/25/17 14:43 Dose: Not Given Iopamidol (Isovue Multipack-370 (76%)) 100 ml IVPUSH ONETIME ONE Stop: 11/25/17 16:44 Last Admin: 11/25/17 16:43 Dose: 100 ml Morphine Sulfate (Morphine) 2 mg IVPUSH Q2H PRN PRN Reason: Pain (severe 7-10) Stop: 11/26/17 18:04 - Exam Quality Assessment: Denies: Supplemental Oxygen, Urine Catheter General: Reports: Alert, Oriented, Cooperative, No Acute Distress HEENT: Reports: Pupils Equal, Pupils Reactive, EOMI, Mucous Membr. Moist/Arp Neck: Reports: Supple, Trachea Midline, No Thyromegaly Lungs: Reports: Clear to Auscultation, Normal Respiratory Effort Cardiovascular: Reports: Regular Rate, Regular Rhythm, No Murmurs GI/Abdominal Exam: Normal Bowel Sounds, Soft, Non-Tender, No Distention (Male) Exam: Deferred Rectal (Males) Exam: Deferred Back Exam: Reports: Normal Inspection, Full Range of Motion Extremities: Normal Inspection, No Pedal Edema Skin: Reports: Warm, Dry, Intact Neurological: Reports: No New Focal Deficit Psy/Mental Status: Reports: Alert, Normal Affect, Normal Mood
--- NOTE | 2017-11-27 13:44 | CT ---
EXAM DATE: 11/25/17 PATIENT'S AGE: 67 Patient: FELICE RAMOS Facility: [place], [place] Site . Site : 1950 Study: CT Abdomen/Pelvis W RADHA [id number]/29/2018 4:41:48 PM Ordering Physician: Doctor Long Final Report: INDICATION: Abdominal pain and distention. History of small-bowel obstruction. TECHNIQUE: CT abdomen and pelvis acquired with 100 cc Isovue 370 IV contrast. COMPARISON: 02/17/2011 FINDINGS: Lower chest: Unremarkable. Liver: A sub centimeter low attenuation lesion is in the extreme superior left liver lobe on the axial series image 19. Even smaller low attenuation lesion is in the dome of the right lobe on image 10. Remainder the liver is unremarkable. Gallbladder and bile ducts: Status post cholecystectomy. No biliary dilatation. The Pancreas: The body and tail of the pancreas appear to be absent. Pancreatic head is unremarkable. Spleen: Absent. Adrenal glands: Unremarkable. No nodules. Kidneys: Unremarkable. No masses, stones, or hydronephrosis. GI tract: There is a small bowel obstruction pattern with a transition at the ileocecal valve. This pattern is similar to the comparison exam from January 2011. No mass, inflammation, or other finding at the ileocecal valve. Small bowel loops are dilated up to 4 cm. Vasculature: Unremarkable. Lymph nodes: No lymphadenopathy. Omentum/Peritoneum/Abdominal Wall: There is a small paraumbilical ventral hernia containing the outer wall of a short segment of non incarcerated small bowel. Otherwise unremarkable. Pelvis: Unremarkable. Bones: Degenerative disc spondylosis is at L5-S1. Otherwise unremarkable. IMPRESSION: Small-bowel obstruction with the transition at the ileocecal valve. This pattern is similar to the prior exam. No specific finding at the ileocecal valve to explain the obstruction. Please note that all CT scans at this facility use dose modulation, iterative reconstruction, and/or weight-based dosing when appropriate to reduce radiation dose to as low as reasonably achievable. Dictated by Herman hCurchill MD @ Nov 25 2017 4:59PM (Electronic Signature) Report Signed by Proxy. FLORECITA
--- NOTE | 2017-11-27 14:22 | CR ---
EXAM DATE: 11/25/17 PATIENT'S AGE: 67 Patient: FELICE RAMOS Facility: [place], [place] Site . Site : 1950 Study: XRay Chest [id number]/29/2018 7:19:44 PM Ordering Physician: Doctor Long Final Report: INDICATION: NG tube placement. TECHNIQUE: AP portable chest x-ray. FINDINGS: NG tube with tip in the upper stomach. The side hole of the NG tube is near the GE junction. Heart size normal. Minimal platelike opacity right mid lung could be a bronchovascular marking or platelike atelectasis or scarring. No pulmonary infiltrate. Chest otherwise unremarkable. Dictated by Aden Conteh MD @ Nov 25 2017 7:40PM (Electronic Signature) Report Signed by Proxy. FLORECITA
--- NOTE | 2017-11-27 17:47 | CR ---
EXAM DATE: 11/25/17 PATIENT'S AGE: 67 Patient: FELICE RAMOS Facility: [place], [place] Site . Site : 1950 Study: XRay Abdomen [id number]/30/2018 8:27:29 AM Ordering Physician: Savanna Dey Final Report: HISTORY: Followup small bowel obstruction. COMPARISON: CT of 11/25/2017. FINDINGS: Small-bowel dilation has improved. NG tube in the stomach. No evidence for free intraperitoneal air. Retained contrast in the bladder. Dictated by Leslye Lim MD @ Nov 26 2017 8:36AM (Electronic Signature) Report Signed by Proxy. FLORECITA
== END 2017-11-26 16:30 | disposition home or self-care (01) | DRG 247 ==
LOC: MW.ED 13:27 → MW.MS 20:13 → MW.ED 20:15 → MW.MS 20:16
PROVIDERS: ADMIT Internal Medicine; ATTEND Internal Medicine
PROC: 0D9670Z Drainage of Stomach with Drainage Device, Via Natural or Artificial Opening (ICD-10-PCS; principal; 2017-11-25)
DX: K56.609 Unspecified intestinal obstruction, unspecified as to partial versus complete obstruction (principal); H54.7 Unspecified visual loss; E78.00 Pure hypercholesterolemia, unspecified; I10 Essential (primary) hypertension; G89.29 Other chronic pain; M54.9 Dorsalgia, unspecified; E11.9 Type 2 diabetes mellitus without complications; K43.2 Incisional hernia without obstruction or gangrene; Z79.84 Long term (current) use of oral hypoglycemic drugs; Z90.49 Acquired absence of other specified parts of digestive tract; Z90.81 Acquired absence of spleen; Z90.411 Acquired partial absence of pancreas; Z79.899 Other long term (current) drug therapy; Z85.07 Personal history of malignant neoplasm of pancreas; Z88.0 Allergy status to penicillin; Z88.2 Allergy status to sulfonamides; Z95.5 Presence of coronary angioplasty implant and graft; Z87.891 Personal history of nicotine dependence
CPT/HCPCS: 36415; 71045; 71045-26; 74019; 74019-26; 74177; 74177-26; 80053; 81001; 82962; 83690; 84484; 85025; 87086; 93005; 99285-25; J1650; J1885; J2405; J7040; Q9967

== ENCOUNTER 2019-11-15 08:15 | Day surgery (SDC) | payer BC ==
[~2019-11-15 08:15] MED LIST changes: -Gadobenate Dimeglumine 529 MG/ML 20 ML SDV IV ONE; +Lactated Ringers 1,000 ML IV SCH; +Lidocaine 2% 5 ML SDV ONE; +Midazolam 1 MG/ML 2 ML SDV ONE; +Propofol 200 MG/20 ML SDV ONE; +fentaNYL 100 MCG/2 ML SDV ONE
--- NOTE | 2019-11-15 08:57 | PCM.PREANE ---
Preanesthetic Assessment - Anesthesia/Transfusion/Family Hx Anesthesia History: Prior Anesthesia Without Reaction Family History of Anesthesia Reaction: No Transfusion History: No Prior Transfusion(s) Intubation History: Unknown - Review of Systems General: No Symptoms Pulmonary: No Symptoms Cardiovascular: No Symptoms Gastrointestinal: Difficulty Swallowing Neurological: No Symptoms Other: Reports: None - Physical Assessment Height: 5 ft 8 in Weight: 76.657 kg ASA Class: 3 Mental Status: Alert & Oriented x3 Airway Class: Mallampati = 2 Dentition: Reports: Normal Dentition Thyro-Mental Finger Breadths: 3 Mouth Opening Finger Breadths: 3 ROM/Head Extension: Full Lungs: Clear to Auscultation, Normal Respiratory Effort Cardiovascular: Regular Rate, Regular Rhythm - Allergies Allergies/Adverse Reactions: Allergies Allergy/AdvReac Type Severity Reaction Status Date / Time Penicillins Allergy Cannot Verified 11/11/19 14:22 Remember Sulfa (Sulfonamide Allergy Cannot Verified 11/11/19 14:22 Antibiotics) Remember - Blood Blood Available: No - Anesthesia Plan Pre-Op Medication Ordered: None - Acknowledgements Anesthesia Type Planned: MAC Pt an Appropriate Candidate for the Planned Anesthesia: Yes Alternatives and Risks of Anesthesia Discussed w Pt/Guardian: Yes Pt/Guardian Understands and Agrees with Anesthesia Plan: Yes PreAnesthesia Questionnaire HEENT History: Reports: Cataract, Glaucoma, Impaired Vision Other HEENT History: wears glasses Cardiovascular History: Reports: Blood Clots/VTE/DVT, High Cholesterol, Hypertension, Stents Other Cardiovascular History: states had a heart attack during gallbladder surgery, cardiac stent placed in 1986, hx DVT left leg, h/o NSVT Respiratory History: Reports: Sleep Apnea Other Respiratory History: uses CPAP Gastrointestinal History: Reports: GERD, Other (See Below) Other Gastrointestinal History: 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 Genitourinary History: Reports: BPH Musculoskeletal History: Reports: None Neurological History: Reports: 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)) Psychiatric History: Reports: None Endocrine/Metabolic History: Reports: Diabetes, Type II Hematologic History: Reports: None Immunologic History: Reports: None Oncologic (Cancer) History: Reports: Liver, Other (See Below) Other Oncologic History: neuroendocrine cancer with mets Dermatologic History: Reports: None - Infectious Disease History Infectious Disease History: Reports: Chicken Pox, Measles, Mumps - Past Surgical History Head Surgeries/Procedures: Reports: None HEENT Surgical History: Reports: Cataract Surgery Cardiovascular Surgical History: Reports: Carotid Endarterectomy, Coronary Artery Stent Respiratory Surgical History: Reports: None GI Surgical History: Reports: Appendectomy, Cholecystectomy, EGD (last year (slow motility of esophagus)), Other (See Below) Other GI Surgeries/Procedures: 60 percent pancreas removal, splenectomy & gallbladder removed at the same time '12 Male Surgical History: Reports: None Endocrine Surgical History: Reports: None Neurological Surgical History: Reports: None Musculoskeletal Surgical History: Reports: None Oncologic Surgical History: Reports: Other (See Below) Other Oncologic Surgeries/Procedures: speenectomy, tumor removed from pancrease and gallbladder removal Dermatological Surgical History: Reports: None - SUBSTANCE USE Smoking Status *Q: Former Smoker Tobacco Use Within Last Twelve Months: No Recreational Drug Use History: No - HOME MEDS Home Medications: Home Meds Acyclovir [Zovirax] 400 mg PO BID 10/12/17 [History] Dorzolamide/Timolol [Cosopt 2%-0.5% Ophth Soln] 1 drop EYEBOTH DAILY 10/12/17 [History] Ramipril 10 mg PO BID 10/12/17 [History] SUNItinib Malate [Sutent] 12.5 mg PO DAILY 10/12/17 [History] amLODIPine Besylate [Amlodipine Besylate] 5 mg PO DAILY 10/12/17 [History] atorvaSTATin Calcium [Atorvastatin Calcium] 40 mg PO BEDTIME 10/12/17 [History] metFORMIN HCl [Metformin HCl] 500 mg PO BID 10/12/17 [History] Cholecalciferol (Vitamin D3) [Vitamin D3] 1,000 units PO DAILY 11/25/17 [History] Magnesium Oxide [Magnesium] 400 mg PO BID 11/25/17 [History] Multivitamin/Iron/Folic Acid [Multi-Day Plus Iron Tablet] 1 tab PO DAILY 11/25/17 [History] Ascorbic Acid [Vitamin C] 1,000 mg PO DAILY 11/11/19 [History] Brimonidine Tartrate [Brimonidine Tartrate 0.2% Ophth Soln] 1 drop EYELF BID 11/11/19 [History] Famotidine [Pepcid AC] 1 tab PO DAILY PRN 11/11/19 [History] Jossie 500 mg PO DAILY 11/11/19 [History] Papaya [Papaya Enzyme] 1 tab.chew CHEW DAILY 11/11/19 [History] Rivaroxaban [Xarelto] 10 mg PO DAILY 11/11/19 [History] Turmeric Root Extract [Turmeric Curcumin] 1 tab PO DAILY 11/11/19 [History] - CURRENT (IN HOUSE) MEDS Current Meds: Current Medications Lactated Ringer's (Ringers, Lactated) 1,000 mls @ 125 mls/hr IV ASDIRECTED SARY Discontinued Medications Fentanyl (Sublimaze) Confirm Administered Dose 100 mcg .ROUTE .STK-MED ONE Stop: 11/15/19 07:05 Lidocaine (Xylocaine-Mpf 2%) Confirm Administered Dose 5 ml .ROUTE .STK-MED ONE Stop: 11/15/19 07:04 Midazolam HCl (Versed 1 Mg/Ml) Confirm Administered Dose 2 mg .ROUTE .STK-MED ONE Stop: 11/15/19 07:05 Propofol (Diprivan 20 Ml) Confirm Administered Dose 400 mg .ROUTE .STK-MED ONE Stop: 11/15/19 07:04
[2019-11-15] MEDS ORDERED: Glycopyrrolate 0.2 MG/ML SDV ONE (10:04)
--- NOTE | 2019-11-15 10:28 | PCM.OPNOTE ---
- General Post-Op/Procedure Note Date of Surgery/Procedure: 11/15/19 Operative Procedure(s): Esophagogastroduodenoscopy with gastric and esophageal biopsies and balloon dilatation of esophageal stricture at 20 cm. Balloon dilatation to 54 [place]. Pre Op Diagnosis: Progressive dysphagia with gastroesophageal reflux disease Post-Op Diagnosis: Duodenal diverticulum. Chronic gastritis. Esophagitis. Esophageal stricture. Anesthesia Technique: MAC (ASA III) Primary Surgeon: Frank Bauer Condition: Good Free Text/Narrative:: DICTATION [id number] CPT CODE 48857
[2019-11-15] MEDS ORDERED: Lactated Ringers 1,000 ML IV SCH (10:30)
--- NOTE | 2019-11-15 11:01 | PCM.POSTAN ---
POST ANESTHESIA ASSESSMENT - MENTAL STATUS Mental Status: Alert, Oriented - VITAL SIGNS Vital Signs: Last Vital Signs Temp 36.5 C 11/15/19 09:16 Pulse 64 11/15/19 10:54 Resp 15 11/15/19 10:54 BP 111/64 11/15/19 10:54 Pulse Ox 94 L 11/15/19 10:54 - RESPIRATORY Respiratory Status: Respiratory Rate WNL, Airway Patent, O2 Saturation Stable - CARDIOVASCULAR CV Status: Pulse Rate WNL, Blood Pressure Stable - GASTROINTESTINAL GI Status: No Symptoms - PAIN Pain Score: 0 - POST OP HYDRATION Hydration Status: Adequate & Stable - OBSERVATIONS Free Text/Narrative:: No anesthesia problems
--- NOTE | 2019-11-15 11:20 | PCM48HPAN ---
Post Anesthesia Note - EVALUATION WITHIN 48HRS OF ANESTHETIC Vital Signs in Normal Range: Yes Patient Participated in Evaluation: Yes Respiratory Function Stable: Yes Airway Patent: Yes Cardiovascular Function Stable: Yes Hydration Status Stable: Yes Pain Control Satisfactory: Yes Nausea and Vomiting Control Satisfactory: Yes Mental Status Recovered: Yes Vital Signs: Last Vital Signs Temp 36.5 C 11/15/19 09:16 Pulse 64 11/15/19 10:54 Resp 15 11/15/19 10:54 BP 111/64 11/15/19 10:54 Pulse Ox 94 L 11/15/19 10:54 - COMMENTS/OBSERVATIONS Free Text/Narrative:: No anesthesia problems
--- NOTE | 2019-11-15 13:18 | OR ---
SURGEON: Frank Bauer M.D. DATE OF PROCEDURE: 11/15/2019 OPERATION PERFORMED: Esophagogastroduodenoscopy with gastric and esophageal biopsies and balloon dilatation of esophageal stricture to 54-[place]. PRIMARY SURGEON: Frank Bauer MD ANESTHESIA: MAC. ASA CLASSIFICATION: II. PREOPERATIVE DIAGNOSIS: Persistent and progressive dysphagia with gastroesophageal reflux disease. POSTOPERATIVE DIAGNOSES: 1. Duodenal diverticulum. 2. Gastritis. 3. Distal esophagitis. 4. Proximal esophageal stricture. DESCRIPTION OF PROCEDURE: The patient was taken to the endoscopy room and positioned on the endoscopy table in the supine position. Time-out was called for appropriate identification of the patient and procedure. Monitored anesthesia care was provided. The bite block was placed between the patient's teeth. The gastroscope was inserted through the bite block and advanced into the oropharynx without difficulty. This was subsequently advanced through the esophagus and stomach into the duodenum. The patient did have a duodenal diverticulum just beyond the pylorus. No acute inflammatory changes or ulcerations were noted. The gastroscope was withdrawn to the stomach, which showed a very mild gastritis. Antral biopsies were obtained to look for the presence of Helicobacter pylori. The gastroscope was then retroflexed to visualize the proximal stomach. No ulcers were noted and there was no evidence of an acute or large hiatal hernia. The gastroscope was then straightened and slowly withdrawn, carefully visualizing the greater and lesser curvatures. The patient from a forward-viewing position did appear to have a small hiatal hernia. The GE junction and Z-line were at approximately 40 to 41 cm. Separate biopsies of this area were obtained. The esophagus demonstrated fair contractility with tertiary contractions. At 20 cm from the incisors, there did appear to be a slight thickening of the esophagus, suggestive of a stricture. This was dilated serially with the endoscopic balloon dilators to 54-[place]. This was tolerated well. The gastroscope was then removed visualizing the vocal cords as the scope was withdrawn. No vocal cord lesions were identified. The gastroscope was then removed with the patient having tolerated the procedure well. He was taken to recovery room in stable condition. RAMANDEEP / SHANNAN /[id number]
== END 2019-11-15 11:25 | disposition home or self-care (01) ==
LOC: MW.SDS 08:15
PROVIDERS: ATTEND Surgery
DX: K22.2 Esophageal obstruction (principal); K29.50 Unspecified chronic gastritis without bleeding; K21.0 Gastro-esophageal reflux disease with esophagitis; K57.30 Diverticulosis of large intestine without perforation or abscess without bleeding; I10 Essential (primary) hypertension; C22.9 Malignant neoplasm of liver, not specified as primary or secondary; D3A.8 Other benign neuroendocrine tumors; G47.30 Sleep apnea, unspecified; E78.00 Pure hypercholesterolemia, unspecified; E78.5 Hyperlipidemia, unspecified; E11.9 Type 2 diabetes mellitus without complications; Z87.891 Personal history of nicotine dependence; Z88.0 Allergy status to penicillin; Z88.2 Allergy status to sulfonamides; Z79.899 Other long term (current) drug therapy; Z79.84 Long term (current) use of oral hypoglycemic drugs; Z90.49 Acquired absence of other specified parts of digestive tract; Z98.890 Other specified postprocedural states; Z80.3 Family history of malignant neoplasm of breast
CPT/HCPCS: 43239; 43249; 82962; J2001; J2250; J2704; J3010; J3490; J7120; 00731; 88305; 88312